=== PATIENT | female | born 1990 | race Caucasian/White ===

== ENCOUNTER 2023-01-16 14:11 | Outpatient (OUT) | payer OTHER, BC, SELFPAY ==
[2023-01-16 16:06] LABS: HIV Antigen NON-REACTIVE (NONREACTIVE)
[2023-01-18 05:07] LABS: HCV Ab Non Reactive (Non Reactive)
[2023-01-18 06:09] LABS: HBsAg Screen Negative (Negative); Hepatitis B Surf Ab Quant <3.1 mIU/mL (Immunity>9.9)
[2023-01-18 12:09] LABS: Rapid Plasma Reagin, Quant Non Reactive titer (NonRea<1:1)
== END 2023-01-16 14:12 | disposition home or self-care (01) ==
LOC: LAB 14:15
PROVIDERS: PCP Family Medicine; Visit Provider Nurse Practitioner Family
DX: Z77.21 Contact with and (suspected) exposure to potentially hazardous body fluids (principal)
CPT/HCPCS: 36415; 86592; 86706; 86803; 87340; 87389

== ENCOUNTER 2023-04-11 20:42 | Outpatient (REF) | payer SELFPAY ==
--- OUTSIDE RECORDS SUMMARY | 2023-04-11 20:49 | XMS_ITS | CCD ---
Author Name Unknown Address [address] [place] [address] Organization [facility] Care Team Providers Care Programs Assistant Name Role Phone Unavailable Primary Care Provider CLAUDY Zelaya Primary Care Unavailable DR MARCO OLIVO Attending Unavailable DR MARCO OLIVO Consulting Unavailable DR MARCO OLIVO Admitting Unavailable DR MIRYAM WITT Primary Care Unavailable Medications Current Medications Medication Drug Class(es) Dates Sig (Normalized) Sig (Original) acetaminophen 500 mg oral tablet (1 source) take 2 tablets by mouth every six hours as needed for pain acetaminophen (TYLENOL) 500 MG tablet Take 1,000 mg by mouth every 6 hours as needed for Pain 0 Active 12 hr buPROPion hydrochloride 150 mg extended release oral tablet (1 source) Aminoketone take 150 mg by mouth twice daily buPROPion HCl (WELLBUTRIN PO) Take 150 mg by mouth 2 times daily 0 Active FLUoxetine 10 mg oral capsule (1 source) Serotonin Reuptake Inhibitor take 1 capsule by mouth once daily FLUoxetine (PROZAC) 10 MG capsule Take 10 mg by mouth daily 0 Active ibuprofen 400 mg oral tablet (1 source) Nonsteroidal Anti-inflammator y Drug take 1 tablet by mouth every six hours as needed for pain ibuprofen (ADVIL;MOTRIN) 400 MG tablet Take 400 mg by mouth every 6 hours as needed for Pain 0 Active 1 ml medroxyPROGESTERone acetate 150 mg/ml injection (2 sources) Progestin Start: 6 medroxyPROGESTERone (DEPO-PROVERA) 150 MG/ML injection Inject 1 mL into the muscle once for 1 dose 1 mL 0 05/05/2015 Active metFORMIN hydrochloride 1000 mg oral tablet (1 source) Biguanide metFORMIN (GLUCO PHAGE) 1000 MG tablet Take 500 mg by mouth 2 times daily (with meals) 0 Active Completed/Discontinued Medications Medication Drug Class(es) Dates Sig (Normalized) Sig (Original) 1 ml diphenhydrAMINE hydrochloride 50 mg/ml cartridge (1 source) Histamine-1 Receptor Antagonist Start: 04-26-2020 End: 04-26-2020 diphenhydrAMINE (BENADRYL) injection 25 mg 1 ml ketorolac tromethamine 15 mg/ml cartridge (1 source) Nonsteroidal Anti-inflammatory Drug, Cyclooxygenase Inhibitor Start: 04-26-2020 End: 04-26-2020 ketorolac (TORADOL) injection 15 mg Start: 04-26-2020 End: 04-26-2020 ketorolac (TORADOL) injectio n 15 mg 2 ml metoclopramide 5 mg/ml prefilled syringe (1 source) Dopamine-2 Receptor Antagonist Start: 04-26-2020 End: 04-26-2020 metoclopramide (REGLAN) injection 10 mg 24 hr metoprolol succinate 25 mg extended release oral tablet (3 sources) beta-Adrenergic Jazzy Start: 12-28-2020 take 1 tablet by mouth once daily Metoprolol Succinate ER 25 MG Oral Tablet Extended Release 24 Hour Take 1 tablet daily Quantity: 90 Refills: 0 Ordered: 12-Mar-2021 Otf Varela MD Start : 28-Dec-2020 Active 50 ml sodium chloride 9 mg/ml injection (1 source) Start: 04-26-2020 End: 04-26-2020 0.9 % sodium chloride bolus Problems Active Problems Problem Classification Problem Date Documented Date Episodic/Chronic Cardiac dysrhythmias (3 sources) Sinus tachycardia; Translations: [Other specified cardiac dysrhythmias] Episodic Headache; including migraine (1 source) Headache; Translations: [Nonintractable headache, unspecified chronicity pattern, unspecified headache type] Episodic Immunizations and screening for infectious disease (1 source) Encounter for screening for human papillomavirus (HPV); Translations: [ENC SCREENING HUMAN PAPILLOMAVIRUS] Onset: 01-22-2022 Episodic Other screening for suspected conditions (not mental disorders or infectious disease) (4 sources) Encounter for screening for malignant neoplasm of cervix; Translations: [ENC SCREENING MALIG NEOPLASM CERV] Onset: 01-19-2022 Episodic Past or Other Problems Problem Classification Problem Date Documented Date Episodic/Chronic Contraceptive and procreative management (1 source) Contraception ; Translations: [Encounter for surveillance of contraceptives] Onset: 04-30-2015 04-30-2015 Episodic Results Test Name Value Interpretation Reference Range Facil ity PAP ACOG PANEL 2: 30 to 65on 01-27-2022 . . Normal [facility] Comment on above: Result Comment: Perf ormed at: WB Performed By: #### [id number] #### [facility] [address] [address] [address] Mitzi Welch Age Gdln ACOG Testing 30-65 Normal [facility] Comment on above: Performed By: #### [id number] #### [facility] [address] [address] [address] Mitzi Welch DIAGNOSIS: Comment Normal [facility] Comment on above: Result Comment: NEGA TIVE FOR INTRAEPITHELIAL LESION OR MALIGNANCY. Performed at: WB Performed By: #### [id number] #### [facility] [address] [address] [address] Mitzi Welch HPV Aptima Negative Normal Negative [facility] Comment on above: Result Comment: This nucleic acid amplification test detects fourteen high-risk HPV types (16,18,31,33,35,39,45,51,52,56,58,59,66,68) without differentiation. Performed at: =G Performed By: #### [id number] #### [facility] [address] [address] [address] Mitzi Welch HPV Genotype Reflex Comment Normal [facility] Comment on above: Result Comment: Crit eria not met, HPV Genotype not performed. Performed at: WB Performed By: #### [id number] #### [facility] [address] [address] [address] Mitzi Welch Methodology: Comment [facility] Comment on above: Result Comment: This liquid based ThinPrep(R) pap test was screened with the use of an image guided system. Performed at: WB Performed By: #### [id number] #### [facility] [address] [address] [address] Mitzi Welch Note: Comment Normal [facility] Comment on above: Result Comment: The Pap smear is a screening test designed to aid in the detection of premalignant and malignant conditions of the uterine cervix. It is not a diagnostic procedure and should not be used as the sole means of detecting cervical cancer. Both false-positive and false-negative reports do occur. . Performed at: WB Performed By: #### [id number] #### [facility] [address] [place] [address] Dr. Mitzi Welch Performed by: Comment Normal [facility] Comment on above: Result Comment: Kj Anderson Physician Pediatrician (ASCP) Performed at: WB Performed By: #### [id number] #### [facility] [address] [place] [address] Dr. Mitzi Welch Specimen adequacy: Comment Normal [facility] Comment on above: Result Comment: Sati sfactory for evaluation. No endocervical component is identified. Performed at: WB Performed By: #### [id number] #### [facility] [address] [place] [address] Dr. Mitzi Welch Coding Summary.on 11-13-2020 Coding Summary. CD:[id number] Gh 0bWw+PGhlYWQ+IN4DSZRbT 72fdEVakZ8PX8xIAR7ADSC XBBAUKD3QGI0ipFP2CQhbV 2VybiAv GhuqqZNaAH09OYf2JLG7zR rdFPjyiO7ouJQcJ8v4WcKh VX75wU57BAbjCEItPcK8Mu ZpbjsgbWFy W3daJdPchBVzUzq+PHRhYm xlIHdpZHRoPScxMDAlJyBz jCdvVN5sDm8vFQImKNZljG xhcHNlOiBj s0mxTDOgLJdqVF4maLmoU2 LahBV2VSXet7w5Un99sGI+ QKTvBKB1aRafUIorb192Gj Vwp1mqYQC7 tDDhXRdxSPP8W65zp8V9AY DkRMEcOOD5yVT6eR4myOpi bdbjL8CryOVfQxT5DDM3jT DieY0khQxl gzagnP1zIjs+K33YEY6QDN JYAP9ZAtu0X8OuMjmbjQE+ QX42USSrCM13uUHojTTag9 gdzOf3OwFw CLAqGYP6lNyhVJscw4PnRH LsM24onGWwh0O6MAGbsGip nGIcJnHwbBY3dF4gJYunqv lia8dfwxcs Vzkyj5iidh75oK77M36eTI waBMXiVTI0ZZKoXDXhyJsu gn2ulP6gVt0+PJufn1ptw9 ygcEo7WfEa BXFjsdHroUdtFAN2h7AoGx 72U5UliFwfi4GsBgv7iw27 iVMri5L4kIS5ZNkeLRBfsO 1eAVfjCdW2 HKDhVgTerU33kSJyWAlzKi 0rvBujeTbaJW8tHLKylbzt DCFiwG1nYAUhwUMauYzjNA 4wNTBpbjtm u898SvYoTSC7FZCmyOStT0 KijB5uRtTkKXAnUBNuU9Fs rMKqNSebM508TDxjSfB8AK TgeuLzF6Qo RAYumUcnOgW6k3U4Al8Ra0 EngyulPSS4OJleMKEaOtWq PgWqVcY9R0GtAtl1JXBzdS kwOB0qN2Cq MEWibjioojvoeEF7APTrAO NxlZ00wLOpFTskHm8va3D5 n902RYYmIUQrmG39Qo0zmK ogMTBwdCBU aV3cubnss9zapbmvPbVjXL AuXCp0KXn4WELynZrtOzOu RQK2YxR8RNO0wUYttJ0viN dlkurbaW2t Oyc+T07coX9nRLV9RSM2yo qsUKWvhsVhYA52CY38Y5Pa PjwvdGFibGU+PGRpdiBzdH zwVS5yQvZn j0bom4VvYSvjR0CxFXLxPP ahIxh7GBPfQXD6vBK9xF9r CKGsFKsno6B2kNE9J0Rnly Xctn5sr2tl BVAeWKcdU36yvDKrc4Z6TW PelHI1EDVvcIwmDeRjuZ57 Oyc+CUAxoEnrk2GqJxyfz8 tfu0dnmIz0 IrTyULHmxpZaqEwnRFE9h0 McEy02M70gUTqjBFQkEGVq TKEgGFQlzHsjxl5qwQ0xHl 8+PGNvbCB3 kLX0hF7wYGUrIoP5ZWjoP6 49KvVbqWPqTisfw7gsk5sc mCs6VoPkAJMpxfLdeBtcYY S0h6UmMz71 M53cBXchCLYxIPSqFDJgZI BzoXgijm5fgY9qIw4+PC9j q7getq14yB89hKI+PHRkIH I6lOsoXUfe GLRkoZ8aVJmqLjM4NDTmLe LpcC98lFHwYNvtDh6wlTom mCahUF2sNSPuaffvr881Vp Ock6osUUTy yPPvNEddSFH9T33lz5A5RI DyZDDgVGN0jHP2sK0ikQkl bjogbGVmdDsgdmVydGljYW frXKxlQ012 IHRvcDsnPlBhdGllbnQgTm OnSLy5J2ZxFbb1KDXfyMwz XQ9elCGhLZxxSr9xzRvdpY okCS8eGJYx opkcv272IbQmc1daGSZydU UnNDupMZS0G69co9U1PGRa AKDjJOM7lZP0gC5dvVetpk ogbGVmdDsg jhLqrSsjDMjoPKgaX102DA RvcDsnPkJpcnRoIERhdGU6 VU62VD64kGYnv3H2vOR8E8 BhZGRpbmct mkkkfXG0QKTwAOTerO09Sp 9sxLqjFh3kPOPiDEZ1HVRt rCIgF3ZsiZ4xIyRdDAYrNM GrF8IuyVYp XRteM352HVawErP9SWNpkf EkG4BjAZKxyLchApJ8r5V3 Cb0JK0M5IP33YD28pUCyx4 R3sLP0X7Vo TUQacljdxsydlZE5KRZjOC AdtP13Rm9zcBshEy1vLXHq IHH6UBPanZNdI6YajX8vVh AjMDAwMDAw M9AudMPaDKytL901AYnsRu V9PYJkqmTaY4JuRLOmaXxa SoM2g1F4Cp8JZHs0YP89LO 97pLYkq0G1 hLF4W0UhEYYhnxvltvvrgY T7OGDqWTXbdA67Ly0poIfv Zr6jCHIaRWO6KMYxuAGqB2 GahH9nEjWs JTXkHJBxZ6RcyYYbVIvqO9 11XAiyLnF4SPVnieJdD7Bg PMZbnWqbToH3e3L9Cu4YVJ HmWK77TTS0 ePY3WI51SO63F1HiWpcghS FibGU+PHRhYmxlIHdpZHRo SCbgLOOwSfBloWxxWQ3dXx 9yZGVyLWNv zRawmBRzGaXis6cmNJLbCJ aqNL6eaHlsR7WqxBD2KBKx g4p0Ng83L29gO0XodEF+PG FcpUX7cKM6 aE7vNjZzIrW6RCyvJ686Nz JgcRGkAfehx5hom5thfSk8 PqS0LKXxiqAjzOduGIV1s0 LsCq54L37k IHdpZHRoPSIxNSUiIHZhbG gxss0rbV9zWx0+PGNvbCB3 oXV9sT7gEzUfWaH5GDfkA3 49InRvcCIv Ncpec3rid6touBk1MfLpUI ZuevMshEyrDDA0e4CiCu90 L2OygStnx2YhEyl1px54gE Vms4O7bKM1 I5BnHZNydmkjlBYvpNjyQE 3vYCVxoaspVIIgaS2eDOLa F1a5PnCqSnH3VChkO1Vcsl W7NVAcnATb JQlbQMS2S35wx5M8VIXfRE HtMTI6aRQ0bA1xrGjnvsds bGVmdDsgdmVydGljYWwtYW ltW603TBGq nAygFWUqzH9wSBQsxJUngJ ncLX8sFUKgsrisLvCGI2QQ Y91CTSHMYBhXFKN5B1VxOe y4HUVbzLym YE4hzSSiGHtvQi6bqNatoY ekRR9zKPXptzhoDAQoiK3z LLWwbCWiiBczUD5rUEHbgy xii423LmJy ZJR1CLKprEArL2KwrZ0yUn CdTDImECUjY4KwrDPiGYip H264YLxuKgY7BIKhqtJiL9 FsLWFsaWdu WiC0e0E7Qy6wYO8kIN4dJV vdJX59SQ52jIJlh7W9jZB4 N0UqYRFaonzvtvbjiRZ8CE GwHGTekE82 nPOeMKjjTu3ib0W7p355OS LwVXWssY99Sd2dzPijTIVd mGOJtK3btnfuw2zdblusCo AwMDAwMDt0 HEs9ZAInrMovQkXnFXP2Xm T9OIH9zMKzwN4kbNgssukb iJ2wAtp+TzDkJMOzssU0J7 ArGpm4CCHx bOrgME5cqXEsFJycXk4tjW jevLlfQV5nLWRdtoimZYNq lS0sCFSzbYPrsGunOV9gIW Enwytxs601 PqPuHCS9LHGdzUQkX3YcuE 4xOqGjCSGzFKSjQ0FyeSZb HSrrR754NLteElI8NXMdzz UbZ3AlCJYl zYgvTkS2w4V5Tk4DEF2keD Z6V7GrSsk0FHPtyGkcJB8p pWVkPKoyWq1okBaszWobHH 4wNTBpbjtw OOAxoK5lOBRuyRFjsZlfLW 4aQIInlmqhl048HiQdMLQ3 EERwmWQvM6VhiM6nQhYzBJ XyKCNdC0Ek tNOrZNrzW894OQiaSyN1YV GqmrLgP5HxFMHiyDpkOwB5 x5F4Jg0NlBAbNUVyVN76PJ 32KU85N2Bp PjwvdGFibGU+PHRhYmxlIH dpZHRoPScxMDAlJyBzdHls IW3fXy5iCLHzVZWloJkhfN QfAeMjn3ho HZIuFBsuFX8ohSbwW8RmxE P3GSLbd1p1Vn51S48kP9Ne dXA+MIFpxUY0oAN7dM6vOp VtFcQ0YVin W353DiFimCGoYcxmk5luc7 zjoOn8PfZwIODkqpNcjTyr BNR6v8XhJp24Q09gRWraCV RoPSIyMCUi UYEcfKcprg7kyE7dTu6+PG XddTJ0hGR6aN7eLfFySzN1 XRvuT810GbZhsWRlXvvtM6 8vC1AyuAZ+ BFOeGxl0SNQdmSfsOG6jlK BuGJleTf5wCWY5NoZiJiSy JTrxJ6OpFOOrcbsclgahcE D5XEKyFBWx wZ20Jx4enXlsXy8dQRSjSP Y7LBZynPOmB5ExvM2xVqOs UFKhLSZzJ2CgbASoRVkjY1 71PVbxSjH7 NNLnicUaP3ZxCRRcoScbJr K2o7P8Fn8QqTdfwGEaWA5o OaLpSBf7D2XuZsd4IDNttC lpNE0urBPh HGxcVp4coXzsuBmzKA9lWT Htleshj485VqPpf6inPREc tJWxNWjnRDS4F75tx9Z3HT MwMDAwMDA7 fNJ6kM0rsJyoqqmqoUWhzR cdixWvsGuyLOvcKUegB652 AOIvjOgyZpOUNuc6V1EeBf n7QYCemHji WQ6jlRVqCBjpZf8hnHdwjQ aoRB7xNQVizucip012JjDw t7jeTJNrkAHoPIbrBUQ9B6 2so2O5MFEw KIFiZII3lOA5mC6nnEdhsv ogbGVmdDsgdmVydGljYWwt URmxX969RNNueFdfTk8GAc m0K8GlRjv3 QHGhyOfsSF4crOQyNPpaKx 0itUlztDpcRO4rCWGkolkv n030EaZej1enWERmvWOiVU mvUFG2B57m a3Q4DSFnHEXgWMM6oXR7iJ 1hbGlnbjogbGVmdDsgdmVy tHpdMRonJGboW750PYXlgZ snPlBheWVy OjwvdGQ+YS10hi61M0GrHz fyBsx6HRBkMEG2cEF0zO2v HCTdYHlvh8Q9vFP9B5Aryr Uxea0qc7vb YXBz (more content not included)... Normal [facility] Prescriptions/Work Noteson 0 11-10-2020 Prescriptions/Work Notes [id number]#1. 00CD:127 Normal [facility] Patient History Officeon Patient History Office [id number]#[id number] 0CD:127 [facility] Sleep Office/Clinic Noteon 0 11-06-2020 Sleep Office/Clinic Note History of Present Illness Calling in today to establish care for obstructive sleep apnea. The patient apparently was referred for sleep study due to snoring, disrupted sleep, fatigue and daytime sleepiness. She underwent a home sleep study and is calling in today to discuss results, establish care and guide further management. She reports that her weight has been relatively stable for the past few years she has not had any change in her medications recently and she is relatively healthy. Review of Systems Constitutional: no fever, no chills, no sweats, no weakness Skin: no Jaundice, no rash, no lesions, no petechiae ENT: no ear pain, no sore throat, no congestion, no hoarseness Respiratory: Denies shortness of breath, cough or wheezing Cardiovascular: no chest pain, no palpitations, no edema Gastrointestinal: no nausea, no vomiting, no diarrhea, no GI bleeding Genitourinary: no dysuria, no hematuria, no discharge, no pain Musculoskeletal: no back pain, no trauma Neurologic: no headache, no dizziness, no numbness, no weakness Psychiatric: no irritability, no mood swings/depression. Heme/Lymph: no bleeding tendency, no bruising tendency, no petechiae, no swollen nodes Allergy/Immunologic: no seasonal allergies, no food allergies, no recurrent infections, no impaired immunity Additional ROS info: Except as noted in the above Review of Systems and in the History of Present Illness all other systems have been reviewed and are negative or noncontributory. Physical Exam Vitals & Measurements HT: 152.4 cm HT: 152.4 cm WT: 76.3 kg WT: 76.29 kg BMI: 32.85 Assessment/Plan 1. DAVI (obstructive sleep apnea) (G47.33: Obstructive sleep apnea (adult) (pediatric)) The patient's sleep study was reviewed and results were discussed with the patient in details. Evidence of mild underlying obstructive sleep apnea with an apnea hypotony index of 7.5/hour without oxygen desaturation noted. The etiology of obstructive sleep apnea and methods of treatment were discussed with the patient in details. She is agreeable to treatment. I will arrange for an auto titrating CPAP machine with a pressure range of 5 to 15 cm via mask of her choice with heated humidity and see her back after 6 to 8 weeks with a download from her machine to reevaluate her treatment plan. She will call me back in the meantime if any issues. This visit was performed using telemedicine as a way of communication due to the patient request and consent. The total time spent with the patient was 21 minutes. Follow-up With When Contact Information Marnie MORENO, Fuentes Griffith, PUL, FREIDA Within 6 weeks [address] [facility] [place] [address]- Additional Instructions: Problem List/Past Medical History Ongoing No qualifying data Historical No qualifying data Medications No active medications Allergies No active allergies Normal [facility] Comment on above: Result Comment: Elec tronically Signed By: Marnie MORENO, Fuentes GElayne\.br\Date and Time Signed: 11/06/20 11:00 EDT Physician Orderon 09-08-2020 Physician Order [id number]#1.0 0CD:127 Normal [facility] CBC Auto Differentialon 04-13 Basophils (Bld) [#/Vol] 0.07 10*3/uL [facility] Phone: Basophils/100 WBC (Bld) 1 % 0 - 2 % [employer] Phone: Differential Type NOT REPORTED [facility] Phone: Eosinophils (Bld) [#/Vol] 0.08 10*3/uL [facility] Phone: Eosinophils/100 WBC (Bld) 1 % 1 - 4 % [employer] Phone: Erythrocyte distribution width (RBC) [Ratio] 13.0 % 11.8 - 14.4 % [employer] Phone: Hematocrit (Bld) [Volume fraction] 40.5 % 36.3 - 47.1 % [employer] Phone: Hemoglobin (Bld) [Mass/Vol] 13.0 g/dL 11.9 - 15.1 g/dL [employer] Phone: Immature granulocytes (Bld) [#/Vol] 0.03 10*3/uL [employer] Phone: Immature granulocytes (Bld) [#/Vol] 0 % 0 [employer] Phone: Interpretation and review of laboratory results Abnormal [employer] Phone: Lymphocytes (Bld) [#/Vol] 1.95 10*3/uL [employer] Work Phone: Lymphocytes/100 WBC (Bld) 19 % Low 24 - 43 % [facility] Work Phone: MCH (RBC) [Entitic mass] 28.5 pg 25.2 - 33.5 pg [facility] Work Phone: MCHC (RBC) [Mass/Vol] 32.1 g/dL 28.4 - 34.8 g/dL [facility] Work Phone: MCV (RBC) [Entitic vol] 88.8 fL 82.6 - 102.9 fL [employer] Phone: Monocytes (Bld) [#/Vol] 0.77 10*3/uL [employer] Phone: Monocytes/100 WBC (Bld) 8 % 3 - 12 % [facility] Work Phone: Platelet mean volume (Bld) [Entitic vol] 10.1 fL 8.1 - 13.5 fL [employer] Phone: Platelets (Bld) [#/Vol] NOT REPORTED [facility] Phone: Platelets (Bld) [#/Vol] 275 10*3/uL [facility] Work Phone: RBC (Bld) [#/Vol] 4.56 10*6/uL 3.95 - 5.1 1 m/uL [facility] Work Phone: RBC morphology finding Nom (Bld) NOT REPORTED [facility] Phone: Segmented neutrophils/100 WBC (Bld) 71 % High 36 - 65 % [facility] Work Phone: Segs Absolute 7.25 [employer] Work Phone: WBC (Bld) [#/Vol] 10.2 10*3/uL [facility] Work Phone: WBC (Bld) [#/Vol] 0.0 10*3/uL 0.0 per 100 WBC [facility] Work Phone: WBC Morphology NOT REPORTED [facility] Work Phone: CBC with Diffon 04-26-2020 Abs. Basophil 0.07 k/uL Normal 0.00-0.20 [facility] Comment on above: Performed By: #### C DP, CMPX #### [address] [place] [address] Healthcare Associate: Guillermo Acuña MD Abs.Imm.Granulocyte 0.03 k/uL Normal 0.00-0.[address] [facility] Comment on above: Performed By: #### C DP, CMPX #### [address] [place], [place] [id number] Healthcare Associate: Guillermo Acuña MD Abs.Neutrophil (Seg) 7.25 k/uL Normal 1.50-8.[address] [facility] Comment on above: Performed By: #### C DP, CMPX #### [address] [place] [address] Healthcare Associate: Guillermo Acuña MD Basophils/100 WBC (Bld) 1 % Normal 0-[address] [facility] Comment on above: Performed By: #### C DP, CMPX #### [address] [place] [address] Healthcare Associate: Guillermo Acuña MD Eosinophils (Bld) [#/Vol] 0.08 10*3/uL Normal 0.00-0.[address] [facility] Comment on above: Performed By: #### C DP, CMPX #### [address] [place] [address] Healthcare Associate: Guillermo Acuña MD Eosinophils/100 WBC (Bld) 1 % Normal 1-[address] [facility] Comment on above: Performed By: #### C DP, CMPX #### [facility] [address] [place], [place] [address] Healthcare Associate: Guillermo Acuña MD Erythrocyte distribution width (RBC) [Ratio] 13.0 % Normal 11.8-14.[address] [facility] Comment on above: Performed By: #### C DP, CMPX #### [facility] [address] [place], [place] [address] Healthcare Associate: Guillermo Acuña MD Hematocrit (Bld) [Volume fraction] 40.5 % Normal 36.3-47.[address] [facility] Comment on above: Performed By: #### C DP, CMPX #### [address] [place], [place] [address] Healthcare Associate: Guillermo Acuña MD Hemoglobin (Bld) [Mass/Vol] 13.0 g/dL Normal 11.9-15.[address] [facility] Comment on above: Performed By: #### C DP, CMPX #### [address] [place], [place] [address] Healthcare Associate: Guillermo Acuña MD Immature granulocytes (Bld) [#/Vol] 0 % Normal [address] [facility] Comment on above: Performed By: #### C DP, CMPX #### [address] [place], [place] [address] Healthcare Associate: Guillermo Acuña MD Lymphocytes (Bld) [#/Vol] 1.95 10*3/uL Normal 1.10-3.[address] [facility] Comment on above: Performed By: #### C DP, CMPX #### [facility] [address] [place], [facility] Healthcare Associate: Guillermo Acuña MD Lymphocytes/100 WBC (Bld) 19 % Low 24-[address] [facility] Comment on above: Performed By: #### C DP, CMPX #### [facility] [address] [place], [place] [id number] Healthcare Associate: Guillermo Acuña MD MCH (RBC) [Entitic mass] 28.5 pg Normal 25.2-33.[address] [facility] Comment on above: Performed By: #### C DP, CMPX #### [address] [place], [facility] Healthcare Associate: Guillermo Acuña MD MCHC (RBC) [Mass/Vol] 32.1 g/dL Normal 28.4-34.[address] [facility] Comment on above: Performed By: #### C DP, CMPX #### [address] [place], [facility] Healthcare Associate: Guillermo Acuña MD MCV (RBC) [Entitic vol] 88.8 fL Normal 82.6-102.[address] [facility] Comment on above: Performed By: #### C DP, CMPX #### [address] [place], [facility] Healthcare Associate: Guillermo Acuña MD Monocytes (Bld) [#/Vol] 0.77 10*3/uL Normal 0.10-1.[address] [facility] Comment on above: Performed By: #### C DP, CMPX #### [address] [place], [facility]83 Healthcare Associate: Guillermo Acuña MD Monocytes/100 WBC (Bld) 8 % Normal 3-[address] [facility] Comment on above: Performed By: #### C DP, CMPX #### [address] [place], [facility]83 Healthcare Associate: Guillermo Acuña MD Neutrophil (Seg) 71 % High 36-65 [facility] Comment on above: Performed By: #### C DP, CMPX #### [address] [place] [address] Healthcare Associate: Guillermo Acuña MD NRBC Automated 0.0 per 100 WBC Normal 0.[address] [facility] Comment on above: Performed By: #### C DP, CMPX #### [facility] [address] [place], [place] [id number] Healthcare Associate: Guillermo Acuña MD Platelet mean volume (Bld) [Entitic vol] 10.1 fL Normal 8.1-13.[address] [facility] Comment on above: Performed By: #### C DP, CMPX #### [facility] [address] [place] [address] Healthcare Associate: Guillermo Acuña MD Platelets (Bld) [#/Vol] 275 10*3/uL Normal 138-[address] [facility] Comment on above: Performed By: #### C DP, CMPX #### [facility] [address] [place] [address] [place], [place] [id number] Healthcare Associate: Guillermo Acuña MD RBC (Bld) [#/Vol] 4.56 10*6/uL Normal 3.95-5.[address] [facility] Comment on above: Performed By: #### C DP, CMPX #### [address] [place], [place] [id number] Healthcare Associate: Guillermo Acuña MD WBC (Bld) [#/Vol] 10.2 10*3/uL Normal 3.5-11.[address] [facility] Comment on above: Performed By: #### C DP, CMPX #### [facility] [address] [place], [place] [id number] Healthcare Associate: Guillermo Acuña MD Auto Diff Performed NOT REPORTED Normal [facility] Comment on above: Performed By: #### C DP, CMPX #### [facility] [address] [place], [place] [id number] Healthcare Associate: Guillermo Acuña MD Platelets (Bld) [#/Vol] NOT REPORTED Normal [facility] Comment on above: Performed By: #### C DP, CMPX #### [facility] [address] [place] [address] Healthcare Associate: Guillermo Acuña MD RBC morphology finding Nom (Bld) NOT REPORTED Normal [facility] Comment on above: Performed By: #### C DP, CMPX #### [facility] [address] [place] [address] Healthcare Associate: Guillermo Acuña MD WBC Morphology NOT REPORTED Normal [facility] Comment on above: Performed By: #### C DP, CMPX #### [facility] [address] [place] [address] Healthcare Associate: Guillermo Acuña MD CT HEAD WO CONTRASTon 2020 CT HEAD WO CONTRAST EXAMINATION: CT OF THE HEAD WITHOUT CONTRAST 04/26/2020 2:53 pm TECHNIQUE: CT of the head was performed without the administration of intravenous contrast. Dose modulation, iterative reconstruction, and/or weight based adjustment of the mA/kV was utilized to reduce the radiation dose to as low as reasonably achievable. COMPARISON: None. HISTORY: ORDERING SYSTEM PROVIDED HISTORY: severe headache TECHNOLOGIST PROVIDED HISTORY: severe headache Decision Support Exception->Emergency Medical Condition (MA) FINDINGS: BRAIN/VENTRICLES: There is no acute intracranial hemorrhage, mass effect or midline shift. No abnormal extra-axial fluid collection. The marie-white differentiation is maintained without evidence of an acute infarct. There is no evidence of hydrocephalus. ORBITS: The visualized portion of the orbits demonstrate no acute abnormality. SINUSES: The visualized paranasal sinuses and mastoid air cells demonstrate no acute abnormality. SOFT TISSUES/SKULL: No acute abnormality of the visualized skull or soft tissues. IMPRESSION: No acute intracranial abnormality. Interpreted by: Timo Davis Jr., DO Signed by: Timo Davis Jr., DO 04/26/20 Final result Normal [facility] CT Head WO Contraston 2020 Jason, [facility] Incoming Radiant Results From [employer] - 04/26/2020 3:30 PM EDT EXAMINATION: CT OF THE HEAD WITHOUT CONTRAST 04/26/2020 2:53 pm TECHNIQUE: CT of the head was performed without the administration of intravenous contrast. Dose modulation, iterative reconstruction, and/or weight based adjustment of the mA/kV was utilized to reduce the radiation dose to as low as reasonably achievable. COMPARISON: None. HISTORY: ORDERING SYSTEM PROVIDED HISTORY: severe headache TECHNOLOGIST PROVIDED HISTORY: severe headache Decision Support Exception->Emergency Medical Condition (MA) FINDINGS: BRAIN/VENTRICLES: There is no acute intracranial hemorrhage, mass effect or midline shift. No abnormal extra-axial fluid collection. The marie-white differentiation is maintained without evidence of an acute infarct. There is no evidence of hydrocephalus. ORBITS: The visualized portion of the orbits demonstrate no acute abnormality. SINUSES: The visualized paranasal sinuses and mastoid air cells demonstrate no acute abnormality. SOFT TISSUES/SKULL: No acute abnormality of the visualized skull or soft tissues. IMPRESSION: No acute intracranial abnormality. [employer] Phone: EXAMINATION: CT OF T HE HEAD WITHOUT CONTRAST 04/26/2020 2:53 pm TECHNIQUE: CT of the head was performed without the administration of intravenous contrast. Dose modulation, iterative reconstruction, and/or weight based adjustment of the mA/kV was utilized to reduce the radiation dose to as low as reasonably achievable. COMPARISON: None. HISTORY: ORDERING SYSTEM PROVIDED HISTORY: severe headache TECHNOLOGIST PROVIDED HISTORY: severe headache Decision Support Exception->Emergency Medical Condition (MA) FINDINGS: BRAIN/VENTRICLES: There is no acute intracranial hemorrhage, mass effect or midline shift. No abnormal extra-axial fluid collection. The marie-white differentiation is maintained without evidence of an acute infarct. There is no evidence of hydrocephalus. ORBITS: The visualized portion of the orbits demonstrate no acute abnormality. SINUSES: The visualized paranasal sinuses and mastoid air cells demonstrate no acute abnormality. SOFT TISSUES/SKULL: No acute abnormality of the visualized skull or soft tissues. [employer] Phone: No acute intracrania l abnormality. [employer] Phone: Comp Metabolic Pr/rfx MGon 0 04-26-2020 (cont.) Normal [facility] Comment on above: Result Comment: Aver age GFR for 30-39 years old: 107 mL/min/1.73sq m Chronic Kidney Disease: <60 mL/min/1.73sq m Kidney failure: <15 mL/min/1.73sq m eGFR calculated using average adult body mass. Additional eGFR calculator available at: http://www.[employer]/multiple_crcl_2012.htm Performed By: #### C DP, CMPX #### [facility] [address] [place] [address] Healthcare Associate: Guillermo Acuña MD Alkaline Phos 39 U/L Normal 35-104 [facility] Comment on above: Performed By: #### C DP, CMPX #### [facility] [address] [place] [address] Healthcare Associate: Guillermo Acuña MD GFR, Amer >60 Normal >60 [facility] Comment on above: Performed By: #### C DP, CMPX #### [facility] [address] [place] [address] Healthcare Associate: Guillermo Acuña MD GFR,non Amer >60 Normal >[address] [facility] Comment on above: Performed By: #### C DP, CMPX #### [address] [place] [address] Healthcare Associate: Guillermo Acuña MD Staging: Normal [facility] Comment on above: Result Comment: Stag e 1: Some kidney damage normal GFR Stage 2: Mild kidney damage GFR 60-89 Stage 3: Moderate kidney damage GFR 30-59 Stage 4: Severe kidney damage GFR 15-29 Stage 5: Severe kidney damage GFR <15 ESRD - chronic treatment by dialysis or transplant Performed By: #### C DP, CMPX #### [facility] [address] [place] [address] Healthcare Associate: Guillermo Acuña MD Albumin [Mass/Vol] 4.6 g/dL Normal 3.5-5.2 [facility] Work Phone: Comment on above: Performed By: #### C DP, CMPX #### [address] [place] [address] Healthcare Associate: Guillermo Acuña MD Albumin/Globulin [Mass ratio] 1.8 {ratio} Normal 1.0-2.5 [facility] Work Phone: Comment on above: Performed By: #### C DP, CMPX #### [address] [place] [address] Healthcare Associate: Guillermo Acuña MD ALT [Catalytic activity/Vol] 12 U/L Normal 5-33 [facility] Work Phone: Comment on above: Performed By: #### C DP, CMPX #### [address] [place] [address] Healthcare Associate: Guillermo Acuña MD Anion gap [Moles/Vol] 6 mmol/L Low 9-17 [facility] Work Phone: Comment on above: Performed By: #### C DP, CMPX #### [address] [place] [address] Healthcare Associate: Guillermo Acuña MD AST [Catalytic activity/Vol] 13 U/L Normal <32 [facility] Work Phone: Comment on above: Performed By: #### C DP, CMPX #### [address] [place] [address] Healthcare Associate: Guillermo Acñua MD Bilirubin Ql (U) 0.39 mg/dL Normal 0.3-1.2 [facility] Work Phone: Comment on above: Performed By: #### C DP, CMPX #### [address] [place] [address] Healthcare Associate: Guillermo Acuña MD Bun/Cre Ratio 16 Normal 9-20 [facility] Work Phone: Comment on above: Performed By: #### C DP, CMPX #### [address] [place] [address] Healthcare Associate: Guillermo Acuña MD Calcium [Mass/Vol] 9.4 mg/dL Normal 8.6-10.4 [facility] Work Phone: Comment on above: Performed By: #### C DP, CMPX #### [address] [place] [address] Healthcare Associate: Guillermo Acuña MD Chloride [Moles/Vol] 103 mmol/L Normal 98-107 [facility] Work Phone: Comment on above: Performed By: #### C DP, CMPX #### [address] [place] [address] Healthcare Associate: Guillermo Acuña MD CO2 [Moles/Vol] 31 mmol/L Normal 20-31 [facility] Work Phone: Comment on above: Performed By: #### C DP, CMPX #### [address] [place] [address] Healthcare Associate: Guillermo Acuña MD Creatinine [Mass/Vol] 0.63 mg/dL Normal 0.50-0.90 [facility] Work Phone: Comment on above: Performed By: #### C DP, CMPX #### [address] [place], [place] [id number] Healthcare Associate: Guillermo Acuña MD Glucose [Mass/Vol] 98 mg/dL Normal 70-99 [facility] Work Phone: Comment on above: Performed By: #### C DP, CMPX #### [address] [place] [address] Healthcare Associate: Guillermo Acuña MD Potassium [Moles/Vol] 4.0 mmol/L Normal 3.7-5.3 [employer] Phone: Comment on above: Performed By: #### C DP, CMPX #### [address] [place] [address] Healthcare Associate: Guillermo Acuña MD Protein [Mass/Vol] 7.1 g/dL Normal 6.4-8.3 [employer] Phone: Comment on above: Performed By: #### C DP, CMPX #### [address] [place] [address] Healthcare Associate: Guillermo Acuña MD Sodium [Moles/Vol] 140 mmol/L Normal 135-144 [employer] Phone: Comment on above: Performed By: #### C DP, CMPX #### [address] [place] [address] Healthcare Associate: Guillermo Acuña MD Urea nitrogen [Mass/Vol] 10 mg/dL Normal 6-20 [employer] Phone: Comment on above: Performed By: #### C DP, CMPX #### [address] [place] [address] Healthcare Associate: Guillermo Acuña MD Comprehensive Metabolic Pane l w/ Reflex to MGon 04-26-2020 ALP [Catalytic activity/Vol] 39 U/L 35 - 104 U/L [employer] Phone: GFR >60 >60 mL/min [employer] Phone: GFR Non- >60 >60 mL/min [employer] Phone: Interpretation and review of laboratory results Abnormal [employer] Phone: Metabolic Panelon 04-26-2020 GFR/1.73 sq M predicted among non-blacks MDRD (S/P/Bld) [Vol rate/Area] [employer] Phone: Comment on above: Average GFR for 30-3 9 years old: 107 mL/min/1.73sq m Chronic Kidney Disease: <60 mL/min/1.73sq m Kidney failure: <15 mL/min/1.73sq m eGFR calculated using average adult body mass. Additional eGFR calculator available at: http://www.[employer]/multiple_crcl_2012.htm Stage 1: Some kidney damage normal GFR Stage 2: Mild kidney damage GFR 60-89 Stage 3: Moderate kidney damage GFR 30-59 Stage 4: Severe kidney damage GFR 15-29 Stage 5: Severe kidney damage GFR <15 ESRD - chronic treatment by dialysis or transplant Vital Signs Date Time Vital Sign Value Performing Clinician Faci lity 04-26-2020 15:00-0400 BP Diastolic 90 mm[Hg] [employer] Phone: 04-26-2020 15:00-0400 BP Systolic 119 mm[Hg] [employer] Phone: 04-26-2020 15:00-0400 Pulse Oximetry 99 % [employer] Phone: 04-26-2020 14:41-0400 Body Temperature 97.59 [degF] [employer] Phone: 04-26-2020 14:41-0400 Pulse (Heart Rate) 96 /min [employer] Phone: 04-26-2020 14:41-0400 Respiratory Rate 20 /min [employer] Phone: Encounters Encounter Date Encounter Type Care Provider Facility Start: 01-19-2022 End: 01-19-[address] MARCO OLIVO Facility:[facility] Start: 03-12-2021 Rx Renewal Otf mills MD Work Phone: [facility] [address] DO Work Phone: Start: 12-28-2020 Rx Renewal Otf mills MD Work Phone: -[facility] 250 DO Work Phone: Start: 04-26-2020 Emergency department patient visit CLAUDY CERVANTES [facility] Start: 04-26-2020 End: 04-26-2020 Emergency department patient visit [facility] ED Comment on above: Nonintractable heada demetrius, unspecified chronicity pattern, unspecified headache type (Primary Dx) Procedures Date Procedure Procedure Detail Performing Clinician Start: 04-26-2020 Blood count complete auto&auto difrntl wbc Allichester Lozada Work Phone: Start: 04-26-2020 Ct head/brain w/o contrast material Alli Lozada Work Phone: Plan of Treatment Date Care Activity Detail Author Start: 10-15-2019 Influenza vaccination Flu vaccine (# 1) [employer] Phone: Start: 2010 Screening for malign ant neoplasm of cervix Cervical cancer screen [employer] Phone: Start: 02-28-2008 DTaP/Tdap/Td vaccine (1 - Tdap) DTaP/Tdap/Td vaccine (1 - Tdap) [employer] Phone: Start: 02-28-2004 HIV screening HIV screen [facility] Work Phone: Start: 1990 Varicella vaccine (1 of 2 - 2-dose childhood series) Varicella vaccine (1 of 2 - 2-dose childhood series) [employer] Phone: Start: 1989 Hepatitis C screening Hepatitis C sc reen [employer] Phone: Payers Date Payer Category Payer Unknown [id number] 1989 Unknown [id number] 1989 Unknown [id number] Social History Date Type Detail Facility Start: 04-26-2020 Tobacco smoking stat [facility] Never smoker [employer] Phone: Start: 04-26-2020 Tobacco use and exposure Never used [employer] Phone: Start: 04-26-2020 Alcohol intake Current drinke r of alcohol (finding) [employer] Phone: Start: 04-30-2015 Alcohol Comment social [employer] Work Phone: Sex Assigned At Not on file [employer] Phone: Exposure to SARS-CoV -2 (event) Not sure [employer] Phone: Clinical Note 10-23-2020 Note Date & Type Note Facility 10-23-2020 Note HOME SLEEP STUDY DATE OF EVALUATION: 09/29/2020 REASON FOR TESTING: Obstructive sleep apnea. CLINICAL HISTORY: Mrs. Polanco is a 30-year-old female who is 152 cm and weighs 76 kg. She was referred for a sleep study due to concern for sleep apnea. The patient was monitored for a total of 493 minutes. During the monitoring duration, the patient had a total of 8 central apneas, 14 obstructive apneas, 8 mixed apneas and 32 hypopneas with an apnea/hypopnea index of 7.5/hour. There was evidence of significant oxygen desaturation present. The mean heart rate during sleep was 93.7 beats per minute with a range of 72-117 beats per minute. There were no snoring episodes noted. IMPRESSION: 1. Evidence of moderate obstructive sleep apnea with an apnea/hypopnea index of 7.5/hour. 2. No evidence of significant oxygen desaturation was present. RECOMMENDATIONS: 1. Treatment for this patient's mild obstructive sleep apnea is warranted. If daytime sleepiness or increased cardiovascular risks are present, clinical correlation is recommended. 2. General recommendation to treat sleep apnea including avoidance of serotonins and hypnotics such as alcohol, testing for thyroid function if clinically warranted and education about the use of CPAP. Thank you for allowing me to participate in this patient's care. If you have any questions, please do not hesitate to contact me. Fuentes Dye MD [facility] Dictated: 10/23/2020 #[id number] Typed: 10/23/2020 #[id number] cc: Fuentes Dye MD [facility] Clinical Note 10-23-2020 Note Date & Type Note Facility 10-23-2020 Note HOME SLEEP STUDY DATE OF EVALUATION: September 29, 2020 REASON FOR TESTING: Obstructive sleep apnea CLINICAL HISTORY: Ms. Polanco is a 30-year-old female who was referred for a sleep study due to concern for sleep apnea. The patient was monitored for a total of 493 minutes. During the monitoring duration, the patient had a total of 8 central apneas, 13 obstructive apneas, 8 mixed apneas, and 33 hypopneas with an apnea/hypopnea index of 7.5/hr. There was minimal oxygen desaturation present with a total of 3 minutes spent with a saturation below 90%. The mean heart rate during sleep was 93.7 beats per minute with a range of 72 to 117 beats per minute. There was no evidence of significant snoring present. IMPRESSION: 1. Evidence of mild obstructive sleep apnea with an apnea-hypopnea index of 7.5/hr. 2. Minimal oxygen desaturation was present. RECOMMENDATIONS: 1. Treatment for this patient's mild obstructive sleep apnea is warranted if daytime sleepiness or increased cardiovascular risks are present. Clinical correlation is recommended. 2. General recommendation to treat sleep apnea including avoidance of serotonin and hypnotics such as alcohol, testing for thyroid function if clinically warranted, and education about the use of CPAP. Thank you for allowing me to participate in this patient's care. If you have any questions, please do not hesitate to contact me. READ BY: Fuentes Dye MD [facility] Dictated: 10/16/2020 #[id number] Typed: 10/16/2020 #[id number] cc: Fuentes Dye MD [facility] Comment on above: Result Comment: Elec tronically Signed By: Marnie MORENO, Fuentes Leon.\.br\Date and Time Signed: 10/23/20 09:19 EDT Discharge Instructions * Instructions* Alli Lozada APRN - TELEVISION NEWSCAST DIRECTOR - 04/26/2020 Return to the emergency department for worsening symptoms. Follow-up with your primary care provider. * Attachments The following attachments cannot be sent through Care Everywhere. 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 Summary Purpose Family History No Family History Records FoundNo Family History Records FoundNo Family History Records Found Additional Source Comments Reason for Visit (unrecogniz ed section and content) Reason Comments Nausea started this am Headache started yesterday Tachycardia started this am INFORMATION SOURCE (unrecogn ized section and content) DATE CREATED AUTHOR 04/28/2020 [facility] [facility] DATE CREATED AUTHOR AUTHOR'S ORGANIZ ATION 11/14/2020 [facility] DATE CREATED AUTHOR AUTHOR'S ORGANIZ ATION 02/03/2022 [facility] FOR RECORDS PERTAINING TO PATIENTS WHO ARE OR HAVE BEEN ENROLLED IN A CHEMICAL DEPENDENCY/SUBSTANCEABUSE PROGRAM, SOME INFORMATION MAY BE OMITTED. This clinical summary was aggregated from multiple sources. Caution should be exercised in using it in the provision of clinical care. This summary normalizes information from multiple sources, and as a consequence, information in this document may materially change the coding, format and clinical context of patient data. In addition, data may be omitted in some cases. CLINICAL DECISIONS SHOULD BE BASED ON THE PRIMARY CLINICAL RECORDS. [employer] provides no warranty or guarantee of the accuracy or completeness of information in this document.
[2023-04-16 16:07] LABS: Age Gdln ACOG Testing Note (.); HPV Aptima Negative (Negative); IGP, Aptima HPV, rfx 16/18,45 Note (.)
== END 2023-04-11 20:43 | disposition home or self-care (01) ==
LOC: LAB 20:42
PROVIDERS: PCP Family Medicine; Visit Provider Obstetrics & Gynecology
DX: Z01.419 Encounter for gynecological examination (general) (routine) without abnormal findings (principal)
CPT/HCPCS: 87624; G0145

== ENCOUNTER 2023-06-23 10:11 | Outpatient (OUT) | payer SELFPAY | END 2023-06-23 10:12 | disposition home or self-care (01) | LOC: PST 10:11 | PROVIDERS: PCP Family Medicine; Visit Provider Surgery | DX: Z01.818 Encounter for other preprocedural examination (principal); R19.4 Change in bowel habit; R10.9 Unspecified abdominal pain; R11.0 Nausea; R10.13 Epigastric pain ==

== ENCOUNTER 2023-07-05 06:39 | Day surgery (SDC) | payer BC, SELFPAY ==
--- NOTE | 2023-07-05 | OP_ITS ---
OPERATION DATE: 07/05/2023 PREOPERATIVE DIAGNOSIS: Epigastric abdominal pain, gastroesophageal reflux disease, change in bowel habits. POSTOPERATIVE DIAGNOSIS: Mild antral gastritis, normal colonoscopy to terminal ileum. PROCEDURE: EGD with antral biopsies and colonoscopy to terminal ileum with random sigmoid and rectal biopsies. SURGEON: Jeremie Scruggs M.D. ANESTHESIA: Monitored anesthesia care. ESTIMATED BLOOD LOSS: Less than 1 mL. INDICATIONS AND CONSENT: Patient is a 33-year-old female with a history of worsening epigastric abdominal pain, intermittent nausea, as well as change in bowel habits with alternating loose stools and constipation. Indications, risks, benefits, alternatives of proceeding with EGD and colonoscopy were explained extensively to the patient, including the risks of bleeding, aspiration, esophageal/gastric/duodenal or colonic perforation or anesthetic complications. All of her questions were answered. Informed consent was obtained. PROCEDURE: Patient brought to the operating room, placed in the left lateral decubitus position. Monitored anesthesia care was provided. Bite block was placed in the patient?s mouth. Scope was inserted into the oropharynx. Under direct visualization, it was advanced into the esophagus, past the cricopharyngeus, down to the stomach. The stomach was insufflated with air. The pylorus was traversed down to the descending portion of the duodenum. There was no evidence of duodenitis or ulceration. There was no scarring within the pyloric channel. Scope was pulled back into the stomach and retroflexed. There was no significant hiatal hernia. Within the antrum, there was noted to be mild antral gastritis with erythema. No ulcerations or bleeding. Biopsy x2 was obtained with pediatric cold biopsy forceps with good hemostasis. The GE junction was noted at approximately 39 cm. There was no distal esophagitis or Gastelum?s changes. The Z-line was regular. The remainder of the esophagus was unremarkable. The scope was then withdrawn. Patient was then positioned for colonoscopy. Rectal exam was performed, which showed no masses or blood. The scope was then inserted into the anal canal. Under direct visualization, it was advanced. It was advanced to the cecum where cecal markings were clearly identified. There was noted to be a good prep. The terminal ileum was intubated, revealed normal villi with no inflammatory changes, ulcerations or edema. Upon withdrawal of the scope, mucosal surfaces were carefully examined. There were no mass lesions or polyps. No inflammatory changes or ulcerations. Random biopsies were obtained in the sigmoid colon and rectum with good hemostasis. The scope was retroflexed in the anal canal. There was no significant hemorrhoidal disease. The scope was then withdrawn. The patient tolerated procedure well, was sent to recovery room in good condition. CC: Beena Doan
--- OUTSIDE RECORDS SUMMARY | 2023-07-05 06:41 | XMS_ITS | CCD ---
Author Organization [facility] Care Team Providers Care Barrel Cleaner Name Role Phone Unavailable Primary Care Provider CLAUDY Zelaya Primary Care Unavailable DR MARCO OLIVO Attending Unavailable PALLAVI, DR LARA Consulting Unavailable DR MARCO OLIVO Admitting Unavailable DR MIRYAM WITT Primary Care Unavailable MIRYAM WITT Primary Care Physician Jeremie BUCK Attending Unavailable Medications Current Medications Medication Drug Class(es) [...] 150 mg/ml injection (2 sources) Progestin Start: medroxyPROGESTERone (DEPO-PROVERA) 150 MG/ML injection Inject 1 [...] Active Problems Problem Classification Problem Date Documented Da te Episodic/Chronic Abdominal pain (4 sources) Epigastric pain; Translations: [Epigastric pain] Onset: 4 Episodic Anxiety disorders (1 source) Anxiety 06-07-2023 Chronic Cardiac dysrhythmias (1 source) Supraventricular tachycardia 06-07-2023 Chronic Cardiac dysrhythmias (3 sources) Sinus tachycardia; Translations: [Other specified cardiac dysrhythmias] Episodic Headache; including migraine (1 source) Headache; Translations: [Nonintractable headache, unspecified chronicity pattern, unspecified headache type] Episodic Immunizations and screening for infectious disease (1 source) Encounter for screening for human papillomavirus (HPV); Translations: [ENC SCREENING HUMAN PAPILLOMAVIRUS] Onset: 2 Episodic Nausea and vomiting (2 sources) Nausea; Translations: [Nausea] Onset: 4 Episodic Other gastrointestinal disorders (2 sources) Altered bowel function; Translations: [Change in bowel habit] Onset: 4 Episodic Other nutritional; endocrine; and metabolic disorders (1 source) Overweight 06-21-2023 Episodic Other nutritional; endocrine; and metabolic disorders (1 source) Overweight in adulthood with body mass index of 25 or more but less than 30 06-21-2023 Episodic Other screening for suspected conditions (not mental disorders or infectious disease) (4 sources) Encounter for screening for malignant neoplasm of cervix; Translations: [ENC SCREENING MALIG NEOPLASM CERV] Onset: 2 Episodic Past or Other Problems Problem Classification Problem Date Documented Date Episodic/Chronic Contraceptive and procreative management (1 source) Contraception ; Translations: [Encounter for surveillance of contraceptives] Onset: 04-30-2015 04-30-2015 Episodic Results Test Name Value Interpretation Reference Range Facility Consent for Procedure/Surger yon 06-23-2023 Consent for Procedure/Surgery [id number]. 00TIFF [facility] Insurance Correspondenceon 0 06-23-2023 Insurance Correspondence [id number]#1. 00TIFF [facility] Ambulatory Visit Summaryon 0 06-21-2023 Ambulatory Visit Summary ELISSA STERN :1990 Visit Date:06/21/2023 Ambulatory Visit Instructions Your Care Team Attending Physician - CIELO MORENO, Jeremie Marquez Primary Care Physician - MIRYAM WITT MD Procedures Performed Abdominal hysterectomy, History of ankle surgery, Tonsillectomy, Tubal ligation. Discharge Vitals Heart Rate (Peripheral) 72 Respiratory Rate 16 Blood Pressure 116/68 Height 152.4 cm Height 60 in Weight 64.2 kg Weight 141.24 lb BMI 27.64 Allergies No Known Allergies No Known Medication Allergies Problems Ongoing - Any problem that you are currently receiving treatment for. Anxiety BMI 27.0-27.9,adult Overweight SVT (supraventricular tachycardia) Patient Survey You may receive a survey via text or e-mail asking about your office visit. Please share your experience with us by completing your survey. We appreciate your feedback and thank you for choosing us for your care. Normal [facility] Facesheeton 06-21-2023 Facesheet [id number]#1 .00TIFF Normal [facility] PAP ACOG PANEL 2: 30 to 65on 01-27-2022 . . Normal [facility] Comment on above: Result Comment: Perf ormed at: WB Performed By: #### [id number] #### [facility] [address] [address] [address] Mitzi Welch Age Gdln ACOG Testing 30-65 Normal [facility] Comment on above: Performed By: #### [id number] #### [facility] [address] [address] [address] Mitiz Welch DIAGNOSIS: Comment [facility] Comment on above: Result Comment: NEGA TIVE FOR INTRAEPITHELIAL LESION OR MALIGNANCY. Performed at: WB Performed By: #### [id number] #### [facility] [address] [address] [address] Mitzi Welch HPV Aptima Negative Normal Negative [facility] Comment on above: Result Comment: This nucleic acid amplification test detects fourteen high-risk HPV types (16,18,31,33,35,39,45,51,52,56,58,59,66,68) without differentiation. Performed at: =G Performed By: #### [id number] #### [facility] [address] [address] [address] Mitzi Welch HPV Genotype Reflex Comment Normal [facility] Comment on above: Result Comment: Crit eria not met, HPV Genotype not performed. Performed at: WB Performed By: #### [id number] #### [facility] [address] [address] [address] Mitzi Welch Methodology: Comment [facility] Comment on above: Result Comment: This liquid based ThinPrep(R) pap test was screened with the use of an image guided system. Performed at: WB Performed By: #### [id number] #### [facility] [address] [place] [address] Dr. Mitzi Welch Note: Comment Normal [facility] Comment on above: Result Comment: The Pap smear is a screening test designed to aid in the detection of premalignant and malignant conditions of the uterine cervix. It is not a diagnostic procedure and should not be used as the sole means of detecting cervical cancer. Both false-positive and false-negative reports do occur. . Performed at: WB Performed By: #### [id number] #### [facility] [address] [address] [address] Mitzi Welch Performed by: Comment Normal [facility] Comment on above: Result Comment: Kj Anderson, Creative Writing Professor (ASCP) Performed at: WB Performed By: #### [id number] #### [facility] [address] [place], [place] [id number] Dr. Mitzi Welch Specimen adequacy: Comment Normal [facility] Comment on above: Result Comment: Sati sfactory for evaluation. No endocervical component is identified. Performed at: WB Performed By: #### [id number] #### [facility] [address] [place], [place] [id number] Dr. Mitzi Welch CBC Auto Differentialon 04-13 Basophils (Bld) [#/Vol] 0.07 10*3/uL [employer] Phone: Basophils/100 WBC (Bld) 1 % 0 - 2 % [employer] Phone: Differential Type NOT REPORTED [employer] Phone: Eosinophils (Bld) [#/Vol] 0.08 10*3/uL [employer] Phone: Eosinophils/100 WBC (Bld) 1 % 1 - 4 % [employer] Phone: Erythrocyte distribution width (RBC) [Ratio] 13.0 % 11.8 - 14.4 % [employer] Phone: Hematocrit (Bld) [Volume fraction] 40.5 % 36.3 - 47.1 % [employer] Phone: Hemoglobin (Bld) [Mass/Vol] 13.0 g/dL 11.9 - 15.1 g/dL [employer] Phone: Immature granulocytes (Bld) [#/Vol] 0.03 10*3/uL [employer] Phone: Immature granulocytes (Bld) [#/Vol] 0 % 0 [employer] Phone: Interpretation and review of laboratory results Abnormal [employer] Phone: Lymphocytes (Bld) [#/Vol] 1.95 10*3/uL [employer] Phone: Lymphocytes/100 WBC (Bld) 19 % Low 24 - 43 % [employer] Phone: MCH (RBC) [Entitic mass] 28.5 pg 25.2 - 33.5 pg [employer] Phone: MCHC (RBC) [Mass/Vol] 32.1 g/dL 28.4 - 34.8 g/dL [employer] Phone: MCV (RBC) [Entitic vol] 88.8 fL 82.6 - 102.9 fL [employer] Phone: Monocytes (Bld) [#/Vol] 0.77 10*3/uL [employer] Phone: Monocytes/100 WBC (Bld) 8 % 3 - 12 % [employer] Phone: Platelet mean volume (Bld) [Entitic vol] 10.1 fL 8.1 - 13.5 fL [employer] Phone: Platelets (Bld) [#/Vol] NOT REPORTED [employer] Phone: Platelets (Bld) [#/Vol] 275 10*3/uL [employer] Phone: RBC (Bld) [#/Vol] 4.56 10*6/uL 3.95 - 5.1 1 m/uL [employer] Phone: RBC morphology finding Nom (Bld) NOT REPORTED [facility] [employer] Work Phone: Segmented neutrophils/100 WBC (Bld) 71 % High 36 - 65 % [facility] [employer] Work Phone: Segs Absolute 7.25 [facility] Work Phone: WBC (Bld) [#/Vol] 10.2 10*3/uL [facility] [place] [facility] Work Phone: WBC (Bld) [#/Vol] 0.0 10*3/uL 0.0 per 10 0 WBC [facility] [place] [facility] Work Phone: WBC Morphology NOT REPORTED [facility] Work Phone: CBC with Diffon 04-26-2020 Abs. Basophil 0.07 k/uL Normal 0.00-0.20 [facility] Comment on above: Performed By: #### C DP, CMPX #### [facility] [address] [place] [address] [place] [place], [place] [address] Building Dismantler: Guillermo Acuña MD Abs.Imm.Granulocyte 0.03 k/uL Normal 0.00-0.30 [facility] Comment on above: Performed By: #### C DP, CMPX #### [address] [place], [place] [id number] Building Dismantler: Guillermo Acuña MD Abs.Neutrophil (Seg) 7.25 k/uL Normal 1.50-8.10 [facility] Comment on above: Performed By: #### C DP, CMPX #### [facility] [address] [place] [address] [place] [address] Building Dismantler: Guillermo Acuña MD Basophils/100 WBC (Bld) 1 % Normal 0-2 [facility] Comment on above: Performed By: #### C DP, CMPX #### [facility] [address] [place], [place] [id number] Building Dismantler: Guillermo Acuña MD Eosinophils (Bld) [#/Vol] 0.08 10*3/uL Normal 0.00-0.44 [facility] Comment on above: Performed By: #### C DP, CMPX #### [address] [place] [address] Building Dismantler: Guillermo Acuña MD Eosinophils/100 WBC (Bld) 1 % Normal 1-4 [facility] Comment on above: Performed By: #### C DP, CMPX #### [address] [place] [id number] Building Dismantler: Guillermo Acuña MD Erythrocyte distribution width (RBC) [Ratio] 13.0 % Normal 11.8-14.4 [facility] Comment on above: Performed By: #### C DP, CMPX #### [address] [place] [id number] Building Dismantler: Guillermo Acuña MD Hematocrit (Bld) [Volume fraction] 40.5 % Normal 36.3-47.1 [facility] Comment on above: Performed By: #### C DP, CMPX #### [address] [place], [facility] Building Dismantler: Giullermo Acuña MD Hemoglobin (Bld) [Mass/Vol] 13.0 g/dL Normal 11.9-15.1 [facility] Comment on above: Performed By: #### C DP, CMPX #### [address] [place], [place] [id number] Building Dismantler: Guillermo Acuña MD Immature granulocytes (Bld) [#/Vol] 0 % Normal 0 [facility] Comment on above: Performed By: #### C DP, CMPX #### [address] [place], [place] [address] Building Dismantler: Guillermo Acuña MD Lymphocytes (Bld) [#/Vol] 1.95 10*3/uL Normal 1.10-3.70 [facility] Comment on above: Performed By: #### C DP, CMPX #### [address] [place], [place] [address]83 Building Dismantler: Guillermo Acuña MD Lymphocytes/100 WBC (Bld) 19 % Low 24-43 [facility] Comment on above: Performed By: #### C DP, CMPX #### [address] [place], [facility]83 Building Dismantler: Guillermo Acuña MD MCH (RBC) [Entitic mass] 28.5 pg Normal 25.2-33.5 [facility] Comment on above: Performed By: #### C DP, CMPX #### [address] [place] [id number] Building Dismantler: Guillermo Acuña MD MCHC (RBC) [Mass/Vol] 32.1 g/dL Normal 28.4-34.8 [facility] Comment on above: Performed By: #### C DP, CMPX #### [address] [place], [facility]83 Building Dismantler: Guillermo Acuña MD MCV (RBC) [Entitic vol] 88.8 fL Normal 82.6-102.9 [facility] Comment on above: Performed By: #### C DP, CMPX #### [address] [place] [address] Building Dismantler: Guillermo Acuña MD Monocytes (Bld) [#/Vol] 0.77 10*3/uL Normal 0.10-1.20 [facility] Comment on above: Performed By: #### C DP, CMPX #### [address] [place] [address] Building Dismantler: Guillermo Acuña MD Monocytes/100 WBC (Bld) 8 % Normal 3-12 [facility] Comment on above: Performed By: #### C DP, CMPX #### [facility] [address] [place], [place] [address] Building Dismantler: Guillermo Acuña MD Neutrophil (Seg) 71 % High 36-65 [facility] Comment on above: Performed By: #### C DP, CMPX #### [facility] [address] [place] [address] Dr. [place], [place] [id number] Building Dismantler: Guillermo Acuña MD NRBC Automated 0.0 per 100 WBC Normal 0.0 [facility] Comment on above: Performed By: #### C DP, CMPX #### [address] [place], [place] [address] Building Dismantler: Guillermo Acuña MD Platelet mean volume (Bld) [Entitic vol] 10.1 fL Normal 8.1-13.5 [facility] Comment on above: Performed By: #### C DP, CMPX #### [address] [place], [place] [address]83 Building Dismantler: Guillermo Acuña MD Platelets (Bld) [#/Vol] 275 10*3/uL Normal 138-453 [facility] Comment on above: Performed By: #### C DP, CMPX #### [address] [place], [place] [id number] Building Dismantler: Guillermo cAuña MD RBC (Bld) [#/Vol] 4.56 10*6/uL Normal 3.95-5.11 [facility] Comment on above: Performed By: #### C DP, CMPX #### [address] [place], [place] [address] Building Dismantler: Guillermo Acuña MD WBC (Bld) [#/Vol] 10.2 10*3/uL Normal 3.5-11.3 [facility] Comment on above: Performed By: #### C DP, CMPX #### [facility] [address] [place], [place] [phone] Building Dismantler: Guillermo Acuña MD Auto Diff Performed NOT REPORTED Normal [facility] Comment on above: Performed By: #### C DP, CMPX #### [address] [place] [address] Building Dismantler: Guillermo Acuña MD Platelets (Bld) [#/Vol] NOT REPORTED Normal [facility] Comment on above: Performed By: #### C DP, CMPX #### [facility] [address] [place] [address] [place] [address] Building Dismantler: Guillermo Acuña MD RBC morphology finding Nom (Bld) NOT REPORTED Normal [facility] Comment on above: Performed By: #### C DP, CMPX #### [address] [place], [place] [address] Building Dismantler: Guillermo Acuña MD WBC Morphology NOT REPORTED Normal [facility] Comment on above: Performed By: #### C DP, CMPX #### [address] [place], [place] [phone] Building Dismantler: Guillermo Acuña MD CT HEAD WO CONTRASTon [...] Davis Jr., DO 04/26/20 Final result Normal [facility] CT Head WO Contraston 2020 Jason, pn Incoming Radiant Results From [employer] - 04/26/2020 3:30 PM EDT EXAMINATION: CT [...] soft tissues. IMPRESSION: No acute intracranial abnormality. [facility] [place] [facility] Work Phone: EXAMINATION: CT OF THE HEAD WITHOUT CONTRAST [...] of the visualized skull or soft tissues. [facility] [place] [facility] Work Phone: No acute intracrania l abnormality. [facility] [place] [facility] Work Phone: Comp Metabolic Pr/rfx MGon 0 04-26-2020 (cont.) Normal [facility] Comment on above: Result Comment: Aver age GFR for 30-39 years old: 107 mL/min/1.73sq m Chronic Kidney Disease: <60 mL/min/1.73sq m Kidney failure: <15 mL/min/1.73sq m eGFR calculated using average adult body mass. Additional eGFR calculator available at: http://www.[employer]/multiple_crcl_2011.htm Performed By: #### C DP, CMPX #### [facility] [address] [place] [address] Building Dismantler: Guillermo Acuña MD Alkaline Phos 39 U/L Normal 35-104 [facility] Comment on above: Performed By: #### C DP, CMPX #### [facility] [address] [place] [address] Building Dismantler: Guillermo Acuña MD GFR, Amer >60 Normal >60 [facility] Comment on above: Performed By: #### C DP, CMPX #### [facility] [address] [place] [address] Building Dismantler: Guillermo Aucña MD GFR,non Amer >60 Normal >60 [facility] Comment on above: Performed By: #### C DP, CMPX #### [facility] [address] [place] [address] Building Dismantler: Guillermo Acuña MD Staging: Normal [facility] Comment on above: Result Comment: Stag e 1: Some kidney damage normal GFR Stage 2: Mild kidney damage GFR 60-89 Stage 3: Moderate kidney damage GFR 30-59 Stage 4: Severe kidney damage GFR 15-29 Stage 5: Severe kidney damage GFR <15 ESRD - chronic treatment by dialysis or transplant Performed By: #### C DP, CMPX #### [address] [place] [address] Building Dismantler: Guillermo Acuña MD Albumin [Mass/Vol] 4.6 g/dL Normal 3.5-5.2 [facility] [place] [facility] Work Phone: Comment on above: Performed By: #### C DP, CMPX #### [address] [place] [address] Building Dismantler: Guillermo Acuña MD Albumin/Globulin [Mass ratio] 1.8 {ratio} Normal 1.0-2.5 [facility] [place] [facility] Work Phone: Comment on above: Performed By: #### C DP, CMPX #### [address] [place] [address] Building Dismantler: Guillermo Acuña MD ALT [Catalytic activity/Vol] 12 U/L Normal 5-33 [facility] [place] [facility] Work Phone: Comment on above: Performed By: #### C DP, CMPX #### [address] [place] [address] Building Dismantler: Guillermo Acuña MD Anion gap [Moles/Vol] 6 mmol/L Low 9-17 [facility] [employer] Work Phone: Comment on above: Performed By: #### C DP, CMPX #### [address] [place] [address] Building Dismantler: Guillermo Acuña MD AST [Catalytic activity/Vol] 13 U/L Normal <32 [facility] [place] [facility] Work Phone: Comment on above: Performed By: #### C DP, CMPX #### [address] [place] [address] Building Dismantler: Guillermo Acuña MD Bilirubin Ql (U) 0.39 mg/dL Normal 0.3-1.2 [facility] Work Phone: Comment on above: Performed By: #### C DP, CMPX #### [address] [place] [address] Building Dismantler: Guillermo Acuña MD Bun/Cre Ratio 16 Normal 9-20 [facility] Work Phone: Comment on above: Performed By: #### C DP, CMPX #### [address] [place] [address] Building Dismantler: Guillermo Acuña MD Calcium [Mass/Vol] 9.4 mg/dL Normal 8.6-10.4 [facility] [place] [facility] Work Phone: Comment on above: Performed By: #### C DP, CMPX #### [address] [place] [address] Building Dismantler: Guillermo Acuña MD Chloride [Moles/Vol] 103 mmol/L Normal 98-107 [facility] Work Phone: Comment on above: Performed By: #### C DP, CMPX #### [address] [place] [address] Building Dismantler: Guillermo Acuña MD CO2 [Moles/Vol] 31 mmol/L Normal 20-31 [facility] Work Phone: Comment on above: Performed By: #### C DP, CMPX #### [address] [place] [address] Building Dismantler: Guillermo Acuña MD Creatinine [Mass/Vol] 0.63 mg/dL Normal 0.50-0.90 [facility] Work Phone: Comment on above: Performed By: #### C DP, CMPX #### [address] [place], [place] [address] Building Dismantler: Guillermo Acuña MD Glucose [Mass/Vol] 98 mg/dL Normal 70-99 [facility] [employer] Work Phone: Comment on above: Performed By: #### C DP, CMPX #### [address] [place] [address] Building Dismantler: Guillermo Acuña MD Potassium [Moles/Vol] 4.0 mmol/L Normal 3.7-5.3 [facility] [employer] Work Phone: Comment on above: Performed By: #### C DP, CMPX #### [address] [place] [address] Building Dismantler: Guillermo Acuña MD Protein [Mass/Vol] 7.1 g/dL Normal 6.4-8.3 [facility] [employer] Work Phone: Comment on above: Performed By: #### C DP, CMPX #### [address] [place] [address] Building Dismantler: Guillermo Acuña MD Sodium [Moles/Vol] 140 mmol/L Normal 135-144 [facility] [employer] Phone: Comment on above: Performed By: #### C DP, CMPX #### [address] [place] [address] Building Dismantler: Guillermo Acuña MD Urea nitrogen [Mass/Vol] 10 mg/dL Normal 6-20 [facility] [employer] Phone: Comment on above: Performed By: #### C DP, CMPX #### [address] [place] [address] Building Dismantler: Guillermo Acuña MD Comprehensive Metabolic Pane l w/ Reflex to MGon 04-26-2020 ALP [Catalytic activity/Vol] 39 U/L 35 - 104 U/L [employer] Phone: GFR >60 >60 mL/min [employer] Phone: GFR Non- >60 >60 mL/min [employer] Phone: Interpretation and review of laboratory results Abnormal [employer] Phone: Metabolic Panelon 04-26-2020 GFR/1.73 sq M predicted among non-blacks MDRD (S/P/Bld) [Vol rate/Area] [employer] Phone: Comment on above: Average GFR for 30-3 9 years old: 107 mL/min/1.73sq m Chronic Kidney Disease: <60 mL/min/1.73sq m Kidney failure: <15 mL/min/1.73sq m eGFR calculated using average adult body mass. Additional eGFR calculator available at: http://www.[employer]/multiple_crcl_2012.htm Stage 1: Some kidney damage normal GFR Stage 2: Mild kidney damage GFR 60-89 Stage 3: Moderate kidney damage GFR 30-59 Stage 4: Severe kidney damage GFR 15-29 Stage 5: Severe kidney damage GFR <15 ESRD - chronic treatment by dialysis or transplant Vital Signs Date Time Vital Sign Value Performing Clinician Gera mi 06-21-2023 13:15-0400 Blood Pressure Location Jeremie WebRadarL [facility] 06-21-2023 13:15-0400 Diastolic blood pressure 68 mm[Hg] Jeremie PIERREL [facility] 06-21-2023 13:15-0400 Heart rate 72 /min Jeremie IGNACIOL [facility] 06-21-2023 13:15-0400 Respiratory rate 16 /min Jeremie IGNACIOL [facility] 06-21-2023 13:15-0400 Systolic blood pressure 116 mm[Hg] Jeremie PIERREL [facility] [place] 04-26-2020 15:00-0400 BP Diastolic 90 mm[Hg] [employer] Work Phone: 04-26-2020 15:00-0400 BP Systolic 119 mm[Hg] [employer] Work Phone: 04-26-2020 15:00-0400 Pulse Oximetry 99 % [employer] Work Phone: 04-26-2020 14:41-0400 Body Temperature 97.59 [degF] [employer] Work Phone: 04-26-2020 14:41-0400 Pulse (Heart Rate) 96 /min [employer] Phone: 04-26-2020 14:41-0400 Respiratory Rate 20 /min [employer] Phone: Encounters Encounter Date Encounter Type Care Provider Facility Start: 06-21-2023 End: 06-22-2023 ambulatory Jeremie BUCK Facility: [facility] Start: 06-21-2023 End: 06-21-2023 Patient encounter procedure Jeremie BUCK [facility] [place] Start: 06-16-2023 ambulatory Jeremie BUCK Facility:[facility] Start: 05-31-2023 ambulatory Jeremie BUCK Facility:[facility] Start: 01-19-2022 End: 01-19-[address] MARCO OLIVO Facility: Start: 03-12-2021 [facility] [employer] Otf mills MD Work Phone: [facility] 250 DO Work Phone: Start: 12-28-2020 [facility] [employer] Otf mills MD Work Phone: [facility] 250 DO Work Phone: Start: 04-26-2020 Emergency department patient visit CLAUDY Mathews [facility] Start: 04-26-2020 End: 04-26-2020 Emergency department patient visit [facility] ED Comment on above: Nonintractable heada demetrius, unspecified chronicity pattern, unspecified headache type (Primary Dx) Procedures Date Procedure Procedure Detail Performing Clinician Start: 04-26-2020 Blood count complete auto&auto difrntl wbc Alli Lozada Work Phone: Start: 04-26-2020 Ct head/brain w/o co ntrast material Alli Lozada Work Phone: Abdominal hysterectomy [place] BUCK History of ankle surgery Mervin BUCK Comment on above: stabilization Ligation of fallopian tube Isak BUCK Tonsillectomy Jeremie BUCK Plan of Treatment Date Care Activity Detail Author Start: 10-15-2019 Influenza vaccination Flu vaccine (# 1) [facility] [employer] Phone: Start: 2010 Screening for malign ant neoplasm of cervix Cervical cancer screen [facility] [employer] Phone: Start: 02-28-2008 DTaP/Tdap/Td vaccine (1 - Tdap) DTaP/Tdap/Td vaccine (1 - Tdap) [facility] [employer] Phone: Start: 02-28-2004 HIV screening HIV screen [facility] Work Phone: Start: 1990 Varicella vaccine (1 of 2 - 2-dose childhood series) Varicella vaccine (1 of 2 - 2-dose childhood series) [facility] [employer] Phone: Start: 1989 Hepatitis C screening Hepatitis C sc reen [facility] [employer] Phone: Immunizations Immunization Date Immunization Notes Care Provider Fa vikram 12-09-2020 SARS-CoV-2 (COVID-19 ) mRNA-1273 vaccine Jeremie IPERREiDoneThis [facility] 03-19-2020 SARS-CoV-2 (COVID-19 ) mRNA-1273 vaccine Jeremie BUCK [facility] 02-20-2020 SARS-CoV-2 (COVID-19 ) mRNA-1273 vaccine Jeremie BUCK [facility] Payers Date Payer Category Payer Unknown [id number] 2019 Unknown [id number] 1989 Unknown [id number] 1989 Unknown [id number] 1989 Unknown [id number] 1989 Unknown [id number] [id number] 1989 Unknown [id number] Social History Date Type Detail Facility Start: 04-26-2020 End: 06-21-2023 Tobacco smoking status NHIS Never smoker [facility] Start: 04-26-2020 Tobacco use and exposure Never used [employer] Phone: Start: 04-26-2020 Alcohol intake Current drinke r of alcohol (finding) [employer] Work Phone: Start: 04-30-2015 Alcohol Comment social [employer] Work Phone: Sex Assigned At Not on file [employer] Phone: Exposure to SARS-CoV -2 (event) Not sure [employer] Work Phone: [facility] status [facility] At Female [facility] Functional Status Date Assessment Result Facility 06-21-2023 Functional Status N/A [facility] Clinical Note 06-21-2023 Note Date & Type Note Facility 06-21-2023 Note Chief Complaint consultation for abdominal pain and bowel changes HPI Staff 33 year old female presents on self referral consultation for abdominal pain and change in bowel habits. Reports approximately 2-2.5 year history of stated complaints. Reports she took 2 doses of Ozempic; symptoms started shortly after that. Verbalized abdominal pain is generalized and fairly constant. Reports daily nausea and rare emesis. Reports bowels change throughout the day. At times she feels constipated and later in the day she will experience loose stools. Denies rectal pain or bleeding. Denies explained weight loss but reports appetite is poor. Never had EGD or colonoscopy. History of Present Illness 33 yo female with h/o anxiety, SVT, presents for evaluation of abd pain and change in bms; 2 year h/o intermittent burning, ache in mid and upper abd; unrelated to eating or activity; intermittent nausea; some improvement after 2 week course of over the counter Nexium; rare emesis; loss of appetite; no GERD or dysphagia, no early satiety; no significant NSAID use; no h/o ulcer disease, jaundice or pancreatitis; no imaging; abd operations significant for tubal ligation and hysterectomy; no previous colonoscopy; had several doses of Ozempic prior to when pain began; no tobacco use; no fmhx of GI malignancy or IBD. Review of Systems PHQ Score Initial Depression Screen Score: 0 SCORE ROS - Provider Constitutional: no fever, no sweats, no weight loss. Eyes: no glasses, no blurred vision, no visual loss. ENMT: no dentures, no hoarseness, no swallowing difficulties, no hearing loss, no ear infection(s), no nose bleeds. Cardiovascular: normal blood pressure, no chest pain, regular heartbeat, no heart murmur. Respiratory: no shortness of breath, no cough, no asthma, no wheezing. Gastrointestinal: yes nausea, yes vomiting, yes diarrhea, yes constipation, no blood in stool, no change in bowel habits, no abdominal pain, no hepatitis. Genitourinary: no kidney stones, no urine infection, no dysuria. Musculoskeletal: no pain, no weakness. Skin: no changing moles, no rash, no skin lumps. Neurologic: no seizures, no epilepsy, no headache. Psychiatric: no emotional or psychiatric problem. Heme/Lymph: no bleeding problems, no anemia, no blood clots, no transfusions. Allergy/Immunologic: no swollen lymph nodes/glands, no IV drug abuse. Other: Additional ROS info: Except as noted in the above Review of Systems and in the History of Present Illness, all other systems have been reviewed and are negative or noncontributory. Physical Exam Vitals & Measurements HR: 72(Peripheral) RR: 16 BP: 116/68 HT: 60 in HT: 152.4 cm WT: 64.2 kg WT: 141.24 lb BMI: 27.64 HEENT: normal conjunctiva, sclera clear, no scleral icterus, EOM intact, PERRLA, oral mucosa moist without lesions. Neck: trachea midline, no mass, symmetric, no thyromegaly or nodules, no adenopathy Respiratory: lungs CTA, respirations non labored. Cardiovascular: regular rate and rhythm, no murmur, no pedal edema or varicosities. Gastrointestinal: soft, non distended, mild tenderness, epigastrium no masses, no palpable hernias, diastasis recti no, no hepatosplenomegaly; normal bs Lymphatic: no cervical adenopathy, no supraclavicular adenopathy. Musculoskeletal: normal gait, digits and nails without infection, nodes, cyanosis, clubbing. Skin: no rashes, no lesions, no ulcers, no subcutaneous nodules, induration. Psychiatric/Neuro: oriented to time, place, person, judgement normal, affect appropriate for age, insight intact, no focal deficits. Tests: review of old records completed , Discussed surgical options, risks, and possible complications with patient. Assessment/Plan 1. Epigastric pain (R10.13: Epigastric pain) plan EGD and colonoscopy under anesthesia for further evaluation, informed consent obtained. 2. Nausea in adult (R11.0: Nausea) see # 1 3. Periumbilical abdominal pain (R10.33: Periumbilical pain) see # 1 4. Change in bowel habits (R19.4: Change in bowel habit) see # 1 Follow-up No qualifying data available Problem List/Past Medical History Ongoing Anxiety BMI 27.0-27.9,adult Change in bowel habits Epigastric pain Nausea in adult Overweight Periumbilical abdominal pain SVT (supraventricular tachycardia) Historical No qualifying data Procedure/Surgical History Abdominal hysterectomy, History of ankle surgery, Tonsillectomy, Tubal ligation. Medications No active medications Allergies No Known Allergies No Known Medication Allergies Social History Alcohol - Denies Alcohol Use, 06/21/2023 Substance Abuse - Denies Substance Abuse, 06/21/2023 Tobacco Never (less than 100 in lifetime) Tobacco Use:. Never Smokeless Tobacco Use:., 06/21/2023 Family History Diabetes mellitus type 2: Father. Hypertension: Father. Primary malignant neoplasm of female genital organ: Mother. Immunizations Vaccine Date Status SARS-CoV-2 (COVID-19) [id number] (more content not included)... [facility] Comment on above: Result Comment: Elec tronically Signed By: CIELO MORENO, Jeremie Perez\Date and Time Signed: 06/21/23 14:04 EDT Evaluation + Plan note Note Date & Type Note Facility Evaluation + Plan note No data available for this section [facility] Hospital Discharge instructions Note Date & Type Note Facility Hospital Discharge instructions No data available for this section [facility] Progress note Note Date & Type Note Facility Progress note No data available for this section [facility] Discharge Instructions * Instructions* Alli Lozada APRN - CNP - 04/26/2020 Return to the emergency department for worsening symptoms. Follow-up with your primary care provider. * Attachments The following attachments cannot be sent through Care Everywhere. * Headache (Yoruba) documented in this encounter Assessments Diagnosis Nonintractable headache, unspecified chronicity pattern, unspecified headache type- Primary Advance Directives No Advanced Directives Records FoundDocuments on File Type Date Recorded Patient Md Do Resident Urgent Care Expl anation ACP-Advance Directive ACP-Power of [employer] Summary Purpose Family History No Family History Records FoundNo Family History Records Found No data available for this section No Family History Records Found Additional Source Comments Reason for Visit (unrecogniz ed section and content) Reason Comments Nausea started this am Headache started yesterday Tachycardia started this am INFORMATION SOURCE (unrecogn ized section and content) DATE CREATED AUTHOR 04/28/2020 [facility] DATE CREATED AUTHOR AUTHOR'S ORGANIZ ATION 02/03/2022 [facility] DATE CREATED AUTHOR AUTHOR'S ORGANIZ ATION 06/23/2023 [facility] Patient Care team informatio n (unrecognized section and content) Personnel Name: MIRYAM WITT MD Address: Address: [address] [place] [address] FOR RECORDS PERTAINING TO PATIENTS WHO ARE [...] BE BASED ON THE PRIMARY CLINICAL RECORDS. [employer] provides no warranty or guarantee of the accuracy or completeness of information in this document.
[2023-07-05 06:56] VITALS: BP 116/66; PULSE 84; TEMP 36.3; O2SAT 96; BMI 27.3
[2023-07-05] MEDS: LACTATED RINGER'S SOLUTION 1,000 ML 50 ML IV (07:03)
[2023-07-05 07:56] VITALS: BP 99/75; PULSE 87; O2SAT 99
[2023-07-05 08:13] VITALS: BP 92/67; PULSE 69; O2SAT 99
== END 2023-07-05 08:26 | disposition home or self-care (01) ==
PROVIDERS: PCP Family Medicine; Visit Provider Surgery
PROC: (CPT 813; principal; 2023-07-05 07:30)
DX: R19.4 Change in bowel habit (principal); R10.9 Unspecified abdominal pain; R10.13 Epigastric pain; R11.0 Nausea; K29.70 Gastritis, unspecified, without bleeding; Z90.710 Acquired absence of both cervix and uterus; Z98.51 Tubal ligation status; R10.33 Periumbilical pain
CPT/HCPCS: 43239; 45380; 88305; J2704

== ENCOUNTER 2024-04-15 14:49 | Outpatient (REF) | payer BC, SELFPAY ==
[2024-04-19 11:08] LABS: Age Gdln ACOG Testing Note (.); HPV Aptima Negative (Negative); IGP, Aptima HPV, rfx 16/18,45 Note (.)
== END 2024-04-15 14:50 | disposition home or self-care (01) ==
LOC: LAB 14:49
PROVIDERS: PCP Family Medicine; Visit Provider Obstetrics & Gynecology
DX: Z01.419 Encounter for gynecological examination (general) (routine) without abnormal findings (principal)
CPT/HCPCS: 87624; 88175

== ENCOUNTER 2024-05-29 06:45 | Outpatient (OUT) | payer BC, SELFPAY ==
--- NOTE | 2024-05-29 06:47 | MR_ITS ---
The [address] [address] Patient Name: ELISSA STERN MRN: [id number] date: 1990 Sex: F Assigned Patient Location: MRI Current Patient Location: MRI Accession/Order Number: [id number] Exam Date: 05/29/2024 07:50 Report Date: 05/29/2024 08:02 At the request of: JESUS RAMIREZ MD Procedure: MR cervical spine wo con EXAMINATION: MRI OF THE CERVICAL SPINE WITHOUT CONTRAST CLINICAL DATA: Neck and right arm pain with finger numbness TECHNIQUE: Multiecho imaging was performed in the sagittal and axial plane without contrast administration. FINDINGS: There is slight reversal of the normal cervical lordosis. No displacement is seen. There are no acute compression fractures or marrow edema. Mild degenerative endplate signal changes are present at C6-7 toward the left. There is a normal cervicomedullary junction. The cord is within normal limits for caliber and signal intensity throughout its imaged course. At C2-3 through C4-5, there is no disc disease or stenosis. At C5-6, there is slight narrowing of the disc space. There is disco osteophytic bulging with effacement of thecal sac approaching though not compressing the cord. Mild foraminal encroachment is seen on the left. At C6-7, there is minor disc space narrowing. Disco-osteophytic bulging is present with a more focal protrusion the right parasagittal region extending through the lateral recess. There is effacement of the thecal sac and borderline crowding of the cord. Mild left and moderate right foraminal encroachment is visualized. At the cervicothoracic junction, no MRI abnormalities are seen. MR/MR cervical spine wo con IMPRESSION: LOSS OF THE CERVICAL LORDOSIS. DISCOVERTEBRAL DEGENERATIVE CHANGES AT C5-6 AND C6-7, WITH ASSOCIATED STENOSIS, OUTLINED ABOVE. Impression dictated by: Lolly Sarah M.D.05/29/2024 8:02 AM Dictation Location: [place] [address] Electronically authenticated by: [id number] Date: 05/29/2024 08:02
--- OUTSIDE RECORDS SUMMARY | 2024-05-29 06:50 | XMS_ITS | CCD ---
Author Organization [facility] Care Team Providers Care Bliss Press Operator Name Role Phone Unavailable Primary Care Provider CLAUDY Zelaya Primary Care Unavailable PALLAVI, DR LARA Attending Unavailable PALLAVI, DR LARA Consulting Unavailable DR MARCO OLIVO Admitting Unavailable DR NEGAR WITT Primary Care Unavailable NEGAR WITT Primary Care Physician Jeremie Scruggs Attending Unavailable Jeremie Scruggs Admitting Unavailable MD Jeremie Scruggs Attending Provider [phone] Jeremie SCRUGGS Attending Unavailable Jeremie SCRUGGS Attending Unavailable CIELO, Jeremie Marquez Attending Unavailable Negar Witt MD Primary Care Provider ARIANA ROSADO Attending Unavailable Allergies Allergy Classification Reported Allergen(s) Allergy Type Date of Onset Reaction(s) Facility (1 source) No Known Medication Allergies; Translations: [No Known Medication Allergies] Propensity to adverse reactions (disorder) [facility] Repository Medications Current Medications Medication Drug Class(es) Dates Sig (Normalized) Sig (Original) acetaminophen 500 mg oral tablet (1 source) take 2 tablets by mouth every six hours as needed for pain acetaminophen (TYLENOL) 500 MG tablet Take 1,000 mg by mouth every 6 hours as needed for Pain 0 Active ALPRAZolam 0.5 mg oral tablet (6 sources) Benzodiazepine Start: 04-11-2023 End: 05-01-2024 ALPRAZolam (Xanax) 0.5 MG tablet Indications: Anxiety, generalized (CMS/HCC) Take 1 tablet (0.5 mg) by mouth as needed at bedtime for anxiety 30 tablet 04/01/2024 05/01/2024 Active azithromycin 250 mg oral tablet (3 sources) Macrolide Antimicrobial Start: 04-11-2023 End: 03-03-2025 azithromycin (Zithromax Z-Jhonatan) 250 MG tablet Indications: Bacterial infection As directed 6 tablet 04/11/2023 04/15/2024 Discontinued (Therapy completed) 12 hr buPROPion hydrochloride 150 mg extended release oral tablet (4 sources) Aminoketone Start: 02-21-2024 take 1 tablet by mouth once daily, then take 1 tablet by mouth once daily buPROPion SR (Wellbutrin SR) 150 MG 12 hr tablet Indications: Mood disorder (CMS/HCC) Take 1 tablet (150 mg) by mouth Daily Take 1 tablet daily. 30 tablet 11 02/21/2024 Active take 150 mg by mouth twice daily buPROPion HCl (WELLBUTRIN PO) Take 150 mg by mouth 2 times daily 0 Active FLUoxetine 10 mg oral capsule (1 source) Serotonin Reuptake Inhibitor take 1 capsule by mouth once daily FLUoxetine (PROZAC) 10 MG capsule Take 10 mg by mouth daily 0 Active ibuprofen 400 mg oral tablet (1 source) Nonsteroidal Anti-inflammatory Drug take 1 tablet by mouth every six hours as needed for pain ibuprofen (ADVIL;MOTRIN) 400 MG tablet Take 400 mg by mouth every 6 hours as needed for Pain 0 Active 1 ml medroxyPROGESTERone acetate 150 mg/ml injection (2 sources) Progestin Start : 04-29 medroxyPROGESTERone (DEPO-PROVERA) 150 MG/ML injection Inject 1 mL into the muscle once for 1 dose 1 mL 0 05/05/2015 Active metFORMIN hydrochloride 1000 mg oral tablet (1 source) Biguanide metFORMIN (GLUCO PHAGE) 1000 MG tablet Take 500 mg by mouth 2 times daily (with meals) 0 Active methylPREDNISolone (3 sources) Corticosteroid Start : 04-11 methylPREDNISolone (Medrol Dospak) 4 MG tablets Indications: Bacterial infection Day 1: 6 tablets Day 2: 5 tablets Day 3: 4 tablets Day 4: 3 tablets Day 5: 2 tablets Day 6: 1 tablet 21 tablet 04/11/2023 Active Completed/Discontinued Medications Medication Drug Class(es) Dates [...] Quantity: 90 Refills: 0 Ordered: 12-Mar-2021 Otf Vareal MD Start : 28-Dec-2020 Active 50 ml [...] Test Name Value Interpretation Reference Range Facility Outside Colonoscopyon 2023 Outside Colonoscopy [id number] .00TIFF Normal [facility] Pathology Noteon 07-10-2023 Pathology Note [id number]#1 .00TIFF Normal [facility] Tomasz 07-05-2023 L Specimen: [id number] Received: 07/05/23 Status: SOU Re Num: [id number] Spec Type: Surgical Subm Dr: Jeremie Scruggs MD FACS Tissues: A Stomach - Biopsy/Polyp (ANTRUM BX) B Colon Biopsy (SIGMOID BX) C Colon Biopsy (RECTAL BX) Procedures: HE/6, Gross/Micro L4/3 Age/ Patient Sex Location Account Attending Physician Elissa Polanco 33/F [place] [id number] Jeremie Scruggs MD FACS SPEC NUM: [id number] RECD: 07/05/23 STATUS: [facility] NUM: [id number] HAWA: 07/05/[address]: Jeremie Scruggs MD FACS ENTERED: 07/05/[address] [facility] DR: Amarjit Whitt SPEC TYPE: Surgical DEPT: CLARITA GUAN ORDERED: HE/6, Gross/Micro L4/3 ORDERED: HE/6, Gross/Micro L4/3 Pathological Diagnosis A. Stomach, Biopsy: Reactive/ Chemical Gastropathy. B. Sigmoid colon, biopsy: No evidence of colitis. C. Rectum, biopsy: No evidence of colitis. Clinical Information Antral gastritis, normal colon. Gross Description Received are 3 formalin filled containers, each labeled with the patient's name, date of and specific specimen site. A. Further labeled antrum biopsy is a 0.3 x 0.2 x 0.1 cm chung mucosal tissue fragment, entirely submitted in A1. B. Further labeled sigmoid colon biopsy are 2 chnug mucosal tissue fragments each measuring 0.3 x 0.2 x 0.1 cm, entirely submitted in B1. C. Further labeled rectal biopsy is a 0.2 x 0.2 x 0.1 cm chung mucosal tissue fragment, entirely submitted in C1. -------- Specimen: [id number] Received: 07/05/23 Status: TORRI Arrington Num: [id number] Spec Type: Surgical Subm Dr: Jeermie Scruggs MD FACS Tissues: A Stomach - Biopsy/Polyp (ANTRUM BX) B Colon Biopsy (SIGMOID BX) C Colon Biopsy (RECTAL BX) Procedures: HE/6, Gross/Micro L4/3 -------- Patient: Elissa Polanco [id number] (Continued) -------- Specimen: [id number] Received: 07/05/23 (Continued) Signed (signature on file) Fernandez Jacobsen MD 07/06/23 1630 -------- Specimen: [id number] Received: 07/05/23 Status: TORRI Arrington Num: [id number] Spec Type: Surgical Subm Dr: Jeremie Scruggs MD FACS Tissues: A Stomach - Biopsy/Polyp (ANTRUM BX) B Colon Biopsy (SIGMOID BX) C Colon Biopsy (RECTAL BX) Procedures: HE/6, Gross/Micro L4/3 -------- Patient: Elissa Polanco [id number] (Continued) -------- Specimen: [id number] Received: 07/05/23 (Continued) CPT Codes [id number] -------- -------- Specimen: [id number] Received: 07/05/23 Status: TORRI Arrington Num: [id number] Spec Type: Surgical Subm Dr: Jeremie Scruggs MD FACS Tissues: A Stomach - Biopsy/Polyp (ANTRUM BX) B Colon Biopsy (SIGMOID BX) C Colon Biopsy (RECTAL BX) Procedures: HE/6, Gross/Micro L4/3 -------- Patient: Elissa Polanco [id number] (Continued) -------- Signed (signature on file) Fernandez Jacobsen MD 07/06/23 [address] [facility] Consent for Procedure/Surger yogene 06-23-2023 Consent for Procedure/Surgery [id number] Normal [facility] Insurance Correspondenceon 0 06-23-2023 Insurance Correspondence [id number]. 00TIFF Normal [facility] Ambulatory Visit Summaryon 0 06-21-2023 Ambulatory Visit Summary ELISSA POLANCO :1990 Visit Date:06/21/2023 Ambulatory Visit Instructions Your Care Team Attending Physician - CIELO MORENO, Jeremie Marquez Primary Care Physician - MIRYAM MORENO, NEGAR Procedures Performed Abdominal hysterectomy, History of ankle [...] for choosing us for your care. Normal [facility] Facesheeton 06-21-2023 Facesheet [id number] .00TIFF Normal [facility] Cytology Cervical or vaginal smear or scraping studyon 04-11-2023 [facility] Human papilloma virus 16+18+ 31+33+35+39+45+51+52+56+58+59+66+68 DNA [Presence] in Mable 04-11-2023 HPV 16+18+31+33+35+39+45+ 51+52+56+58+59+66+68 DNA Probe+sig amp Ql (Cvx) Negative Negative [facility] Comment on above: This nucleic acid am plification test detects fourteen high- risk HPV types (16,18,31,33,35,39,45,51,52,56,58,59,66,68)without differentiation.Performed at: =[address] [id number] Director: Beth Sullivan MD, Phone: [phone] at: WB - [facility] [id number] [facility], [place] [id number] Director: Beth Sullivan MD, Phone: [phone] No Panel Informationon 04-11 HPV High Risk Other Comment Note . [facility] Comment on above: TESTS RESULT FLAG UN ITS REF RANGE LAB D IAGNOSIS: 02 NEGATIVE FOR INTRAEPITHELIAL LESION OR MALIGNANCY.Specimen adequacy: 02 Satisfactory for evaluation.Performed by: Randy Go Precision Honing Machine Operator (ASCP). 02Note: Note 02 The Pap smear is a screening test designed to aid in the detection of premalignant and malignant conditions of the uterine cervix. It is not a diagnostic procedure and should not be used as the sole means of detecting cervical cancer. Both false-positive and false-negative reports do occur.Test Methodology: Note 02 This liquid based ThinPrep(R) pap test was screened with the use of an image guided system.HPV Genotype Reflex Note 02 Criteria not met, HPV Genotype not performed. ------ FLAG LEGEND: L-Low Normal,H-High Normal,LL-Alert Low,HH-Alert High <-Panic Low,>-Panic High,A-Abnormal,AA-Critical Abnormal ----Performed at:02 WB [facility] [address] [facility] [address] Beth Sullivan MD, Reference Lab Test Patient Age Note . [facility] Comment on above: TESTS RESULT FLAG UN ITS REF RANGE LAB Clinician Provided Cytology Information Source.............Vagina No. of containers..01 ThinPrep VialAge Algo ACOG Leora... FLAG LEGEND: L-Low Normal,H-High Normal,LL-Alert Low,HH-Alert High <-Panic Low,>-Panic High,A-Abnormal,AA-Critical Abnormal ----Performed at:01 =G [address] [address] Beth Sullivan MD, PAP ACOG PANEL 2: 30 to 65on 01-27-2022 . . Normal [facility] Comment on above: Result Comment: Perf ormed at: WB Performed By: #### 4 [id number] #### [facility] [address] [address] [address] Mitzi Welch Age Gdln ACOG Testing Normal [facility] Comment on above: Performed By: #### 4 [id number] #### [facility] [address] [address] [address] Mitzi Welch DIAGNOSIS: Comment Normal [facility] Comment on above: Result Comment: NEGA TIVE FOR INTRAEPITHELIAL LESION OR MALIGNANCY. Performed at: WB Performed By: #### 4 [id number] #### [facility] [address] [address] [address] Mitzi Welch HPV Aptima Negative Normal Negative [facility] Comment on above: Result Comment: This nucleic acid amplification test detects fourteen high-risk HPV types (16,18,31,33,35,39,45,51,52,56,58,59,66,68) without differentiation. Performed at: =G Performed By: #### 4 [id number] #### [facility] [address] [place] [address] Dr. Mitzi Welch HPV Genotype Reflex Comment Normal [facility] Comment on above: Result Comment: Crit eria not met, HPV Genotype not performed. Performed at: WB Performed By: #### 4 [id number] #### [facility] [address] [place] [address] Dr. Mitzi Welch Methodology: Comment Normal [facility] Comment on above: Result Comment: This liquid based ThinPrep(R) pap test was screened with the use of an image guided system. Performed at: WB Performed By: #### 4 [id number] #### [facility] [address] [place] [address] Dr. Mitzi Welch Note: Comment Normal [facility] Comment on above: Result Comment: The Pap smear is a screening test designed to aid in the detection of premalignant and malignant conditions of the uterine cervix. It is not a diagnostic procedure and should not be used as the sole means of detecting cervical cancer. Both false-positive and false-negative reports do occur. . Performed at: WB Performed By: #### 4 [id number] #### [facility] [address] [place] [address] Dr. Mitzi Welch Performed by: Comment Normal [facility] Comment on above: Result Comment: Kj Anderson, Precision Honing Machine Operator (ASCP) Performed at: WB Performed By: #### 4 [id number] #### [facility] [address] [place] [address] Dr. Mitzi Welch Specimen adequacy: Comment Normal [facility] Comment on above: Result Comment: Sati sfactory for evaluation. No endocervical component is identified. Performed at: WB Performed By: #### 4 [id number] #### [facility] [address] [address] [address] Mitzi Welch CBC Auto Differentialon 04-13 Basophils (Bld) [#/Vol] 0.07 10*3/uL AW[facility] Phone: Basophils/100 WBC (Bld) 1 % 0 - 2 % AW[facility] Phone: Differential Type NOT REPORTED [facility] Phone: Eosinophils (Bld) [#/Vol] 0.08 10*3/uL [facility] Phone: Eosinophils/100 WBC (Bld) 1 % 1 - 4 % AW[facility] Phone: Erythrocyte distribution width (RBC) [Ratio] 13.0 % 11.8 - 14.4 % [facility] Phone: Hematocrit (Bld) [Volume fraction] 40.5 % 36.3 - 47.1 % [facility] Phone: Hemoglobin (Bld) [Mass/Vol] 13.0 g/dL 11.9 - 15.1 g/dL [facility] Phone: Immature granulocytes (Bld) [#/Vol] 0.03 10*3/uL AW[facility] Phone: Immature granulocytes (Bld) [#/Vol] 0 % 0 [facility] Phone: Interpretation and review of laboratory results Abnormal [facility] Phone: Lymphocytes (Bld) [#/Vol] 1.95 10*3/uL [facility] Phone: Lymphocytes/100 WBC (Bld) 19 % Low 24 - 43 % [facility] Phone: MCH (RBC) [Entitic mass] 28.5 pg 25.2 - 33.5 pg AW[facility] Phone: MCHC (RBC) [Mass/Vol] 32.1 g/dL 28.4 - 34.8 g/dL [employer] Work Phone: MCV (RBC) [Entitic vol] 88.8 fL 82.6 - 102.9 fL [employer] Work Phone: Monocytes (Bld) [#/Vol] 0.77 10*3/uL [employer] Work Phone: Monocytes/100 WBC (Bld) 8 % 3 - 12 % [employer] Work Phone: Platelet mean volume (Bld) [Entitic vol] 10.1 fL 8.1 - 13.5 fL [facility] Phone: Platelets (Bld) [#/Vol] NOT REPORTED [employer] Work Phone: Platelets (Bld) [#/Vol] 275 10*3/uL [employer] Work Phone: RBC (Bld) [#/Vol] 4.56 10*6/uL 3.95 - 5.1 1 m/uL [employer] Work Phone: RBC morphology finding Nom (Bld) NOT REPORTED [employer] Work Phone: Segmented neutrophils/100 WBC (Bld) 71 % High 36 - 65 % [facility] Phone: Segs Absolute 7.25 [employer] [facility] Work Phone: WBC (Bld) [#/Vol] 10.2 10*3/uL [employer] Work Phone: WBC (Bld) [#/Vol] 0.0 10*3/uL 0.0 per 10 0 WBC [employer] Work Phone: WBC Morphology NOT REPORTED [employer] [facility] Work Phone: CBC with Diffon 04-26-2020 Abs. Basophil 0.07 k/uL Normal 0.00-0.20 [facility] Comment on above: Performed By: #### C DP, CMPX #### [facility] [address] [place], [place] [id number] Shingle Cutter: Guillermo Acuña MD Abs.Imm.Granulocyte 0.03 k/uL Normal 0.00-0.30 [facility] Comment on above: Performed By: #### C DP, CMPX #### [address] [place], [facility] Shingle Cutter: Guillermo Acuña MD Abs.Neutrophil (Seg) 7.25 k/uL Normal 1.50-8.10 [facility] Comment on above: Performed By: #### C DP, CMPX #### [address] [place] [id number] Shingle Cutter: Guillermo Acuña MD Basophils/100 WBC (Bld) 1 % Normal 0-2 [facility] Comment on above: Performed By: #### C DP, CMPX #### [address] [place], [facility] Shingle Cutter: Guillermo Acuña MD Eosinophils (Bld) [#/Vol] 0.08 10*3/uL Normal 0.00-0.44 [facility] Comment on above: Performed By: #### C DP, CMPX #### [address] [place] [id number] Shingle Cutter: Guillermo Acuña MD Eosinophils/100 WBC (Bld) 1 % Normal 1-4 [facility] Comment on above: Performed By: #### C DP, CMPX #### [address] [place], [facility] Shingle Cutter: Guillermo Acuña MD Erythrocyte distribution width (RBC) [Ratio] 13.0 % Normal 11.8-14.4 [facility] Comment on above: Performed By: #### C DP, CMPX #### [address] [place] [address] Shingle Cutter: Guillermo Acuña MD Hematocrit (Bld) [Volume fraction] 40.5 % Normal 36.3-47.1 [facility] Comment on above: Performed By: #### C DP, CMPX #### [facility] [address] [place] [address] Shingle Cutter: Guillermo Acuña MD Hemoglobin (Bld) [Mass/Vol] 13.0 g/dL Normal 11.9-15.1 [facility] Comment on above: Performed By: #### C DP, CMPX #### [facility] [address] [place] [address] Shingle Cutter: Guillermo Acuña MD Immature granulocytes (Bld) [#/Vol] 0 % Normal 0 [facility] Comment on above: Performed By: #### C DP, CMPX #### [address] [place], [facility] Shingle Cutter: Guillermo Acuña MD Lymphocytes (Bld) [#/Vol] 1.95 10*3/uL Normal 1.10-3.70 [facility] Comment on above: Performed By: #### C DP, CMPX #### [address] [place] [address] Shingle Cutter: Guillermo Acuña MD Lymphocytes/100 WBC (Bld) 19 % Low 24-43 [facility] Comment on above: Performed By: #### C DP, CMPX #### [facility] [address] [place] [address] Shingle Cutter: Guillermo Acuña MD MCH (RBC) [Entitic mass] 28.5 pg Normal 25.2-33.5 [facility] Comment on above: Performed By: #### C DP, CMPX #### [facility] [address] [place] [address] Shingle Cutter: Guillermo Acuña MD MCHC (RBC) [Mass/Vol] 32.1 g/dL Normal 28.4-34.8 [facility] Comment on above: Performed By: #### C DP, CMPX #### [facility] [address] [place], [place] [id number] Shingle Cutter: Guillermo Acuña MD MCV (RBC) [Entitic vol] 88.8 fL Normal 82.6-102.9 [facility] Comment on above: Performed By: #### C DP, CMPX #### [facility] [address] [place] [address] Shingle Cutter: Guillermo Acuña MD Monocytes (Bld) [#/Vol] 0.77 10*3/uL Normal 0.10-1.20 [facility] Comment on above: Performed By: #### C DP, CMPX #### [address] [place], [place] [address] Shingle Cutter: Guillermo Acuña MD Monocytes/100 WBC (Bld) 8 % Normal 3-12 [facility] Comment on above: Performed By: #### C DP, CMPX #### [address] [place], [place] [id number] Shingle Cutter: Guillermo Acuña MD Neutrophil (Seg) 71 % High 36-65 [facility] Comment on above: Performed By: #### C DP, CMPX #### [facility] [address] [place] [address] Dr[address] [place], [place] [id number] Shingle Cutter: Guillermo Acuña MD NRBC Automated 0.0 per 100 WBC Normal 0.0 [facility] Comment on above: Performed By: #### C DP, CMPX #### [facility] [address] [place] [address] Shingle Cutter: Guillermo Acuña MD Platelet mean volume (Bld) [Entitic vol] 10.1 fL Normal 8.1-13.5 [facility] Comment on above: Performed By: #### C DP, CMPX #### [facility] [address] [place] [address] Shingle Cutter: Guillermo Acuña MD Platelets (Bld) [#/Vol] 275 10*3/uL Normal 138-453 [facility] Comment on above: Performed By: #### C DP, CMPX #### [facility] [address] [place] [address] Shingle Cutter: Guillermo Acuña MD RBC (Bld) [#/Vol] 4.56 10*6/uL Normal 3.95-5.11 [facility] Comment on above: Performed By: #### C DP, CMPX #### [facility] [address] [place] [address] Shingle Cutter: Guillermo Acuña MD WBC (Bld) [#/Vol] 10.2 10*3/uL Normal 3.5-11.3 [facility] Comment on above: Performed By: #### C DP, CMPX #### [facility] [address] [place] [address] Shingle Cutter: Guillermo Acuña MD Auto Diff Performed NOT REPORTED Normal [facility] Comment on above: Performed By: #### C DP, CMPX #### [facility] [address] [place] [address] Shingle Cutter: Guillermo Acuña MD Platelets (d) [#/Vol] NOT REPORTED Normal [facility] Comment on above: Performed By: #### C DP, CMPX #### [facility] [address] [place] [address] Shingle Cutter: Guillermo Acuña MD RBC morphology finding Nom (d) NOT REPORTED Normal [facility] Comment on above: Performed By: #### C DP, CMPX #### [facility] [address] [place], [place] [id number] Shingle Cutter: Guillermo Acuña MD WBC Morphology NOT REPORTED Normal [facility] Comment on above: Performed By: #### C DP, CMPX #### [facility] [address] [place] [address] Shingle Cutter: Guillermo Acuña MD CT HEAD WO CONTRASTon [...] Davis Jr., DO 04/26/20 Final result Normal [facility] CT Head WO Contraston 2020 Jason, pn Incoming Radiant Results From [employer] - 04/26/2020 3:30 PM EDT EXAMINATION: CT [...] soft tissues. IMPRESSION: No acute intracranial abnormality. [facility] Phone: EXAMINATION: CT OF THE HEAD WITHOUT [...] of the visualized skull or soft tissues. [facility] Phone: No acute intracrania l abnormality. [facility] Phone: Comp Metabolic Pr/rfx MGon 0 04-26-2020 (cont.) Normal [facility] Comment on above: Result Comment: Aver age GFR for 30-39 years old: 107 mL/min/1.73sq m Chronic Kidney Disease: <60 mL/min/1.73sq m Kidney failure: <15 mL/min/1.73sq m eGFR calculated using average adult body mass. Additional eGFR calculator available at: http://www.[employer].Olery/multiple_crcl_2011.htm Performed By: #### C DP, CMPX #### [facility] [address] [place] [address] Shingle Cutter: Guillermo Acuña MD Alkaline Phos 39 U/L Normal 35-104 [facility] Comment on above: Performed By: #### C DP, CMPX #### [facility] [address] [place] [address] Shingle Cutter: Guillermo Acuña MD GFR, Amer >60 Normal >60 [facility] Comment on above: Performed By: #### C DP, CMPX #### [facility] [address] [place] [address] Shingle Cutter: Guillermo Acuña MD GFR,non Amer >60 Normal >60 [facility] Comment on above: Performed By: #### C DP, CMPX #### [facility] [address] [place] [address] Shingle Cutter: Guillermo Acuña MD Staging: Normal [facility] Comment on above: Result Comment: Stag e 1: Some kidney damage normal GFR Stage 2: Mild kidney damage GFR 60-89 Stage 3: Moderate kidney damage GFR 30-59 Stage 4: Severe kidney damage GFR 15-29 Stage 5: Severe kidney damage GFR <15 ESRD - chronic treatment by dialysis or transplant Performed By: #### C DP, CMPX #### [address] [place] [address] Shingle Cutter: Guillermo Acuña MD Albumin [Mass/Vol] 4.6 g/dL Normal 3.5-5.2 [facility] Work Phone: Comment on above: Performed By: #### C DP, CMPX #### [facility] [address] [place] [address] Shingle Cutter: Guillermo Acuña MD Albumin/Globulin [Mass ratio] 1.8 {ratio} Normal 1.0-2.5 [facility] Work Phone: Comment on above: Performed By: #### C DP, CMPX #### [address] [place] [address] Shingle Cutter: Guillermo Acuña MD ALT [Catalytic activity/Vol] 12 U/L Normal 5-33 [facility] Work Phone: Comment on above: Performed By: #### C DP, CMPX #### [address] [place] [address] Shingle Cutter: Guillermo Acuña MD Anion gap [Moles/Vol] 6 mmol/L Low 9-17 [facility] Work Phone: Comment on above: Performed By: #### C DP, CMPX #### [address] [place] [address] Shingle Cutter: Guillermo Acuña MD AST [Catalytic activity/Vol] 13 U/L Normal <32 [facility] Work Phone: Comment on above: Performed By: #### C DP, CMPX #### [address] [place] [address] Shingle Cutter: Guillermo Acuña MD Bilirubin Ql (U) 0.39 mg/dL Normal 0.3-1.2 [facility] [facility] Work Phone: Comment on above: Performed By: #### C DP, CMPX #### [address] [place] [address] Shingle Cutter: Guillermo Acuña MD Bun/Cre Ratio 16 Normal 9-20 [facility] Work Phone: Comment on above: Performed By: #### C DP, CMPX #### [address] [place] [address] Shingle Cutter: Guillermo Acuña MD Calcium [Mass/Vol] 9.4 mg/dL Normal 8.6-10.4 [facility] Work Phone: Comment on above: Performed By: #### C DP, CMPX #### [place] [address] [place] [address] Shingle Cutter: Guillermo Acuña MD Chloride [Moles/Vol] 103 mmol/L Normal 98-107 [facility] Work Phone: Comment on above: Performed By: #### C DP, CMPX #### [facility] [address] [place] [address] Shingle Cutter: Guillermo Acuña MD CO2 [Moles/Vol] 31 mmol/L Normal 20-31 [facility] Work Phone: Comment on above: Performed By: #### C DP, CMPX #### [address] [place] [address] Shingle Cutter: Guillermo Acuña MD Creatinine [Mass/Vol] 0.63 mg/dL Normal 0.50-0.90 [facility] [employer] Work Phone: Comment on above: Performed By: #### C DP, CMPX #### [address] [place] [address] Shingle Cutter: Guillermo Acuña MD Glucose [Mass/Vol] 98 mg/dL Normal 70-99 [facility] Work Phone: Comment on above: Performed By: #### C DP, CMPX #### [address] [place] [address] Shingle Cutter: Guillermo Acuña MD Potassium [Moles/Vol] 4.0 mmol/L Normal 3.7-5.3 [facility] [employer] Work Phone: Comment on above: Performed By: #### C DP, CMPX #### [address] [place] [address] Shingle Cutter: Guillermo Acuña MD Protein [Mass/Vol] 7.1 g/dL Normal 6.4-8.3 [facility] Phone: Comment on above: Performed By: #### C DP, CMPX #### [facility] [address] [place] [address] [place] [address] Shingle Cutter: Guillermo cAuña MD Sodium [Moles/Vol] 140 mmol/L Normal 135-144 [facility] Phone: Comment on above: Performed By: #### C DP, CMPX #### [address] [place] [address] Shingle Cutter: Guillermo Acuña MD Urea nitrogen [Mass/Vol] 10 mg/dL Normal 6-20 [facility] Phone: Comment on above: Performed By: #### C DP, CMPX #### [address] [place] [address] Shingle Cutter: Guillermo Acuña MD Comprehensive Metabolic Pane l w/ Reflex to MGon 04-26-2020 ALP [Catalytic activity/Vol] 39 U/L 35 - 104 U/L [facility] Phone: GFR >60 >60 mL/min [employer] Phone: GFR Non- >60 >60 mL/min [facility] Phone: Interpretation and review of laboratory results Abnormal [facility] Phone: Metabolic Panelon 8 GFR/1.73 sq M predicted among non-blacks MDRD (S/P/Bld) [Vol rate/Area] [facility] Phone: Comment on above: Average GFR for 30-3 9 years old: 107 mL/min/1.73sq m Chronic Kidney Disease: <60 mL/min/1.73sq m Kidney failure: <15 mL/min/1.73sq m eGFR calculated using average adult body mass. Additional eGFR calculator available at: http://www.[employer] systems/multiple_crcl_2011.htm Stage 1: Some kidney damage normal GFR Stage 2: Mild kidney damage GFR 60-89 Stage 3: Moderate kidney damage GFR 30-59 Stage 4: Severe kidney damage GFR 15-29 Stage 5: Severe kidney damage GFR <15 ESRD - chronic treatment by dialysis or transplant Vital Signs Date Time Vital Sign Value Performing Clinician Facility 04-15-2024 08:31-0500 Body mass index (BMI) [Ratio] 30.47 kg/m2 Guang Lian Shi Dai Work Phone: [facility] 04-15-2024 08:31-0500 Body weight 70.76 kg Guang Lian Shi Dai Work Phone: [facility] 04-15-2024 08:31-0500 Diastolic blood pressure 70 mm[Hg] Guang Lian Shi Dai Work Phone: [facility] 04-15-2024 08:31-0500 Systolic blood pressure 110 mm[Hg] Guang Lian Shi Dai Work Phone: [facility] 06-21-2023 13:15-0400 Blood Pressure Location [employer] [facility] 06-21-2023 13:15-0400 Diastolic blood pressure 68 mm[Hg] Jeremie NILL [facility] 06-21-2023 13:15-0400 Heart rate 72 /min Jeremie NILL [facility] 06-21-2023 13:15-0400 Respiratory rate 16 /min Jeremie NILL [facility] 06-21-2023 13:15-0400 Systolic blood pressure 116 mm[Hg] Jeremie NILL [facility] 04-26-2020 15:00-0400 BP Diastolic 90 mm[Hg] [facility] Phone: 04-26-2020 15:00-0400 BP Systolic 119 mm[Hg] [employer] Work Phone: 04-26-2020 15:00-0400 Pulse Oximetry 99 % [facility] Phone: 04-26-2020 14:41-0400 Body Temperature 97.59 [degF] [facility] Phone: 04-26-2020 14:41-0400 Pulse (Heart Rate) 96 /min [facility] Phone: 04-26-2020 14:41-0400 Respiratory Rate 20 /min [facility] Phone: Encounters Encounter Date Encounter Type Care Provider Facility Start: 04-15-2024 End: 04-15-2024 Bamboo flowsheet Ariana Ashlee DO Work Phone: [facility] Start: 04-15-2024 End: 04-15-2024 Bamboo flowsheet Ariana Ashlee DO Work Phone: [facility] Start: 04-15-2024 End: 04-15-2024 Patient encounter procedure Ariana Ashlee DO Work Phone: [facility] Start: 04-15-2024 End: 04-15-2024 Periodic preventive med est patient 18-39 yrs Ariana Ashlee DO Work Phone: [facility] Comment on above: Well woman exam with routine gynecological exam; H/O: hysterectomy Start: 04-15-2024 End: 04-15-2024 ambulatory ARIANA ASHLEE Not Available Start: 07-12-2023 ambulatory Jeremie SCRUGGS Facility : [facility] Start: 07-04-2023 End: 07-04-2023 ambulatory Jeremie Scruggs Facility:[facility] Start: 07-04-2023 End: 07-05-2023 ambulatory Jeremie SCRUGGS [facility] Work Phone: Start: 07-04-2023 End: 07-04-2023 Departed Referred MD Jeremie Scruggs Work Phone: [facility] Start: 06-21-2023 End: 06-21-2023 ambulatory Jeremie SCRUGGS Facility:[facility] Start: 06-21-2023 End: 06-21-2023 Patient encounter procedure Jeremie SCRUGGS [facility] Start: 06-16-2023 ambulatory Jeremie SCRUGGS Facility:[facility] Start: 05-31-2023 ambulatory Jeremie SCRUGGS Facility:[facility] Start: 04-11-2023 Non-patient / Non-visit MD Mervin Scruggs Work Phone: [facility] Work Phone: Start: 01-19-2022 End: 01-19-[address] MARCO OLIVO Facility: Start: 03-12-2021 Rx Renewal Otf mills MD Work Phone: [facility] [employer] DO Work Phone: Start: 12-28-2020 Rx Renewal Otf mills MD Work Phone: [facility] 250 DO Work Phone: Start: 04-26-2020 Emergency department patient visit CLAUDY Mathews [facility] Start: 04-26-2020 End: 04-26-2020 Emergency department patient visit [facility] ED Comment on above: Nonintractable heada demetrius, unspecified chronicity pattern, unspecified headache type (Primary Dx) Procedures Date Procedure Procedure Detail Performing Clinician Start: 04-11-2023 Microscopic observat ion [Identifier] in Cervix by Cyto stain [employer] DO Work Phone: Start: 04-11-2023 Cytp cerv/vag auto t hin layer prep mnl screen Guang Lian Shi Dai Work Phone: Start: 01-18-2022 Microscopic observat ion [Identifier] in Cervix by Cyto stain [employer] DO Work Phone: Start: 04-26-2020 Blood count complete auto&auto difrntl wbc Alli Lozada Work Phone: Start: 04-26-2020 Ct head/brain w/o co ntrast material Alli Lozada Work Phone: Abdominal hysterectomy Allan PIERREL H/O: hysterectomy H/O: hysterectomy Ariana Rosado DO Work Phone: History of ankle surgery Mervin sweeney NILL Comment on above: stabilization Ligation of fallopian tube Isak dover NILL Tonsillectomy Jeremie PIERREL Plan of Treatment Date Care Activity Detail Author Start: 04-11-2028 Screening for malign ant neoplasm of cervix [facility] Start: 01-18-2027 Screening for malign ant neoplasm of cervix [facility] Start: 04-21-2025 End: 04-21-2025 Patient encounter procedure 04/21/2025 10:00 AM EDT Office Visit [facility] [address] [place] [id number] Ariana Rosado DO [address], [facility] Start: 04-15-2024 End: 04-15-2024 Patient encounter procedure 04/15/2024 8:30 AM EST Office Visit [facility] [address] [place] [id number] Ariana Rosado, DO [address] [place] [address] Arrived [facility] Comment on above: Arrived Start: 10-15-2023 Influenza vaccination Influenza Vacc ine (#1) [facility] Start: 10-15-2019 Influenza vaccination Flu vaccine (# 1) [facility] Phone: Start: 2010 Screening for malign ant neoplasm of cervix Cervical cancer screen [facility] Phone: Start: 02-28-2008 DTaP/Tdap/Td vaccine (1 - Tdap) DTaP/Tdap/Td vaccine (1 - Tdap) [facility] [employer] Phone: Start: 02-28-2004 HIV screening HIV screen [facility] Work Phone: Start: 1990 Varicella vaccine (1 of 2 - 2-dose childhood series) Varicella vaccine (1 of 2 - 2-dose childhood series) [facility] [employer] Phone: Start: 1989 Hepatitis C screening Hepatitis C sc reen [facility] [employer] Phone: Cytology Cervical or vaginal smear or scraping study Pap Smear Pathology and Cytology Routine Well woman exam with routine gynecological exam Ordered: 04/15/2024 [facility] Work Phone: Comment on above: Ordered: 04/15/2024 Human papilloma viru s DNA [Presence] in Unspecified specimen by Probe with amplification HPV DNA probe, amplified Microbiology Routine Well woman exam with routine gynecological exam Ordered: 04/15/2024 [facility] Comment on above: Ordered: 04/15/2024 Immunizations Immunization Date Immunization Notes Care Provider Karthikeyan sue 01-08-2024 influenza virus vaccine, unspecified formulation Ariana Rosado Work Phone: [facility] 12-09-2020 SARS-CoV-2 (COVID-19 ) mRNA-1273 vaccine Jeremie SCRUGGS [facility] 03-19-2020 SARS-CoV-2 (COVID-19 ) mRNA-1273 vaccine Jeremie NILL [facility] 02-20-2020 SARS-CoV-2 (COVID-19 ) mRNA-1273 vaccine Jeremie NILL [facility] Payers Date Payer Category Payer Self-pay 2022 [employer] BCBS [id number] 2022 Unknown [id number] 2019 Unknown [id number] 1989 Unknown [id number] 1989 Unknown [id number] 1989 Unknown [id number] 1989 Unknown [id number] 1989 Unknown [id number] 1989 Unknown [id number] 1989 Unknown [id number] 1989 Unknown [id number] Social History Date Type Detail Facility Start: 04-26-2020 End: 01-05-2023 Tobacco smoking status ALIS Never smoker [facility] Start: 04-26-2020 Tobacco use and exposure Never used [facility] Work Phone: Start: 04-26-2020 Alcohol intake Current drinke r of alcohol (finding) [employer] Work Phone: Start: 04-30-2015 Alcohol Comment social [employer] Work Phone: Sex Assigned At Not on file [employer] Work Phone: Exposure to SARS-CoV-2 (event) Not sure [employer] Work Phone: Tobacco smoking status Never [facility] Start: 01-05-2023 End: 04-15-2024 Sex Assigned At Female [facility] Start: 1989 Sex Assigned At Female F [facility] Start: 01-05-2023 End: 04-15-2024 History of Social function [facility] Start: 01-17-2023 Gender identity Identifies as female gender (finding) [facility] Functional Status Date Assessment Result Facility 06-21-2023 Functional Status N/A [facility] History of Present illness Narrative 04-15-2024 Abril Michel LPN - 04/15/2024 8:30 AM EST Note Date & Type Note Facility 04-15-2024 History of Presen t illness Narrative Reason for Appointment: Patient ID: Elissa Polanco is a 34 y.o. female who presents for Gynecologic Exam Patient presents today for Annual Exam. MEDICATIONS Current Outpatient Medications Medication Instructions ALPRAZolam (XANAX) 0.5 mg, Oral, Nightly PRN ALPRAZolam (XANAX) 0.5 mg, Oral, Nightly PRN buPROPion SR (WELLBUTRIN SR) 150 mg, Oral, Daily, Take 1 tablet daily. methylPREDNISolone (Medrol Dospak) 4 MG tablets Day 1: 6 tablets Day 2: 5 tablets Day 3: 4 tablets Day 4: 3 tablets Day 5: 2 tablets Day 6: 1 tablet ALLERGIES No Known Allergies PROBLEMS Active Ambulatory Problems Diagnosis Date Noted No Active Ambulatory Problems Resolved Ambulatory Problems Diagnosis Date Noted No Resolved Ambulatory Problems Past Medical History: Diagnosis Date Abnormal weight gain HISTORY PAST MEDICAL HISTORY SOCIAL HISTORY Past Medical History: Diagnosis Date Abnormal weight gain Social History Tobacco Use Smoking status: Never Smokeless tobacco: Not on file Substance Use Topics Alcohol use: Not on file Drug use: Not on file FAMILY HISTORY No family history on file. SURGICAL HISTORY Past Surgical History: Procedure Laterality Date ADENOIDECTOMY HYSTERECTOMY Total TONSILLECTOMY TUBAL LIGATION REVIEW OF SYSTEMS Review of Systems: Review of Systems All other systems reviewed and are negative. OBJECTIVE Objective: Physical Exam Constitutional: Appearance: Normal appearance. She is well-developed. Genitourinary: Vulva normal. Vaginal cuff intact. Cervix is absent. Uterus is absent. Breasts: Breasts are soft. Right: Normal. Left: Normal. Cardiovascular: Rate and Rhythm: Normal rate and regular rhythm. Abdominal: General: Bowel sounds are normal. There is no distension. Palpations: Abdomen is soft. Tenderness: There is no abdominal tenderness. There is no guarding or rebound. Musculoskeletal: General: No swelling. Normal range of motion. Right lower leg: No edema. Left lower leg: No edema. Neurological: Mental Status: She is alert and oriented to person, place, and time. Skin: General: Skin is warm and dry. Psychiatric: Mood and Affect: Mood normal. Behavior: Behavior normal. Vitals and nursing note reviewed. Exam conducted with a multigraph operator present. Vitals: Estimated body mass index is 30.47 kg/m as calculated from the following: Height as of 04/11/23: 5'. Weight as of this encounter: 156 lb. BP: 110/70 No LMP recorded. Patient has had a hysterectomy. ASSESSMENT & PLAN ICD-10-CM 1. Well woman exam with routine gynecological exam Z01.419 Pap Smear HPV DNA probe, amplified 2. H/O: hysterectomy Z90.710 Annual Exam: Patient presents today for an annual exam. Patient states she is doing well and has no complaints. Pap was obtained without difficulty. Orders Placed This Encounter Procedures HPV DNA probe, amplified Follow Up: Patient is to return in one year for annual unless needed otherwise. Documented by Abril Michel LPN on behalf of: Ariana Rosado DO documented in this encounter [facility] Clinical Note 06-21-2023 Note Date & Type [...] Mother. Immunizations Vaccine Date Status SARS-CoV-2 (COVID-19) [id number] (more content not included)... [facility] Comment on above: Result Comment: Elec tronically Signed By: CIELO MORENO, Jeremie Marquez\wilfredo\Date and Time Signed: 06/21/23 14:04 EDT Evaluation + Plan note Note Date & Type Note Facility Evaluation + Plan note No data available for this section [facility] Evaluation note Note Date & Type Note Facility Evaluation note No assessment information [facility] Work Phone: Evaluation note Note Date & Type Note Facility Evaluation note Diagnosis Well woman exam with routine gynecological exam Routine gynecological examination H/O: hysterectomy Acquired absence of both cervix and uterus documented in this encounter [facility] Hospital Discharge instructions Note Date & Type Note Facility Hospital Discharge instructions No data available for this section [facility] Progress note Note Date & Type Note Facility Progress note No data available for this section [facility] Discharge Instructions * Instructions* Alli Lozada APRN - CNP - 04/26/2020 Return to the emergency department for worsening symptoms. Follow-up with your primary care provider. * Attachments The following attachments cannot be sent through Care Everywhere. 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 Summary Purpose Family History No Family History Records FoundNo Family History Records Found No data available for this section No Family History Records FoundNo Family History Records FoundNo Family History Records Found Additional Source Comments Reason for Visit (unrecogniz ed section and content) Reason Comments Nausea started this am Headache started yesterday Tachycardia started this am Reason Comments Gynecologic Exam INFORMATION SOURCE (unrecogn ized section and content) DATE CREATED AUTHOR 04/28/2020 [facility] DATE CREATED AUTHOR AUTHOR'S ORGANIZ ATION 02/03/2022 [facility] DATE CREATED AUTHOR AUTHOR'S ORGANIZ ATION 07/07/2023 [facility] DATE CREATED AUTHOR AUTHOR'S ORGANIZ ATION [facility]2023 [facility] DATE CREATED AUTHOR AUTHOR'S ORGANIZ ATION 04/15/2024 [facility] [employer] Patient Care team informatio n (unrecognized section and content) Team Status: Active Member Role Status Dates Provider Conversion Primary Care Provider Active Start: April 11, 2023 Negar Witt MD Attending Provider Active St art: April 11, 2023 Team Status: Inactive Member Role Status Dates Jeremie Scruggs MD [facility] Attending Provider Active Start: July 04, 2023 End: July 04, 2023 Bliss Press Operator Relationship Specialty Start Date End Date Negar Witt MD [address] [place] [id number] PCP - General Family Medicine 04/11/23 Bliss Press Operator Relationship Specialty Start Date End Date Negar Witt MD [address] [place] [address] PCP - General Family Medicine 04/11/23 Goals (unrecognized section and content) Goals may be documented in a n alternate section FOR RECORDS PERTAINING TO PATIENTS WHO ARE [...] BE BASED ON THE PRIMARY CLINICAL RECORDS. [facility] [employer] [facility]. provides no warranty or guarantee of the accuracy or completeness of information in this document.
== END 2024-05-29 06:46 | disposition home or self-care (01) ==
LOC: MRI 06:46
PROVIDERS: PCP Family Medicine; Visit Provider Anesthesiology
DX: M48.02 Spinal stenosis, cervical region (principal); M50.30 Other cervical disc degeneration, unspecified cervical region
CPT/HCPCS: 72141

== ENCOUNTER 2024-06-03 14:51 | Outpatient (OUT) | payer BC, SELFPAY ==
--- NOTE | 2024-06-03 16:04 | P.CN_ITS ---
Consult Note: HPI Data of Consult Patient: new to practice Consult date: 06/03/24 Requesting Physician: Jose M Magana MD Primary Care Provider: Negar Pollard MD Consult Narrative Reason for consult: neck, right arm pain Narrative: 34yof who presents for evaluation. worsening pain radiating from neck into right upper extremity, arm increasingly numb. cervical mri reviewed, significant for multilevel degeneration, with disc osteophyte complex at c6-7 with resultant stenosis at c6-7. has engaged in provider directed home exercises >6 weeks, without benefit. has been to chiropractor. uses otc meds as needed. cc:: CC: Jose M Magana MD Review of Systems ROS Status of ROS 10 or more systems reviewed and unremark able except as noted in history and below [facility] History Anemia ?D64.9 - Anemia, unspecified (ICD-10) Headache ?R51.9 - Headache, unspecified (ICD-10) SVT (supraventricular tachycardia) ?I47.10 - Supraventricular tachycardia, unspecified (ICD-10) Nausea ?R11.0 - Nausea (ICD-10) Epigastric pain ?R10.13 - Epigastric pain (ICD-10) Abdominal pain ?R10.9 - Unspecified abdominal pain (ICD-10) Change in bowel habits ?R19.4 - Change in bowel habit (ICD-10) Anxiety ?F41.9 - Anxiety disorder, unspecified (ICD-10) Surgical History History of breast biopsy ?Z98.890 - Other specified postprocedural states (ICD-10) H/O tubal ligation ?Z98.51 - Tubal ligation status (ICD-10) Hx of tonsillectomy ?Z90.89 - Acquired absence of other organs (ICD-10) History of ankle surgery ?Z98.890 - Other specified postprocedural states (ICD-10) History of hysterectomy ?Z90.710 - Acquired absence of both cervix and uterus (ICD-10) Family History Other Family history of COPD (chronic obstructive pulmonary disease) Family history of cancer Family history of diabetes mellitus Family history of hypertension Social History Within the past year, how often did you have a drink containing alcohol: 2-4 times a month Smoking status: Never smoker Non-prescribed substance use: denies use 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 Attentive and appropriate, constitutionally normal, displays normal mood and affect per situation.? There are no obvious deficits in memory, reasoning, or intellect.? Skin-no obvious rashes, bruising, or erythema noted to the patient's area of pain.? Extremities-upper extremities are warm with minimal edema and palpable pulses. Cervical- tenderness to palpation noted in the cervical spine and paraspinal musculature.? Pain is elicited with flexion, extension, and lateral rotation of the cervical spine.? Range of motion is diminished due to pain. Facet loading maneuvers are positive.? Strength-unremarkable and within normal limits.? Sensory-no notable sensory deficits in the bilateral upper extremities to touch or pinprick with the exception to decreased sensation to the right C6, 7 dermatomal distribution.? Coordination remains intact.? Gait remains non-antalgic. Assessment and Plan Assessment and Plan (1) Cervical stenosis of spinal canal: Plan 34yof who presents for evaluation. failed conservative measures, as noted. imaging reviewed, as noted. given symptoms and imaging, will refer to spine surgeon for evaluation. she is in agreement. meds reviewed, no changes, would like to stay off medications. follow up after eval.
== END 2024-06-03 14:52 | disposition home or self-care (01) ==
LOC: PM 14:52
PROVIDERS: PCP Family Medicine; Visit Provider Anesthesiology
DX: M48.02 Spinal stenosis, cervical region (principal)
CPT/HCPCS: G0463